=== PATIENT | female | born 1960 | race Caucasian/White ===

== ENCOUNTER → 2018-03-02 | Outpatient (CLI) | payer OTHER ==
[~2018-03-02] MED LIST: Benztropine Mesy1 MG PO; CIPR500 PO; Haldol Dec100 MG/1 M; Loperamide2 MG PO; OLANZAPINE20 MG PO; Zofran Odt4 MG SL
== END ==
LOC: LAB 11:55 → LAB SHORT 11:55
PROVIDERS: Registered Nurse Community Health
DX: Z12.4 Encounter for screening for malignant neoplasm of cervix (principal)
CPT/HCPCS: 87624; G0123

== ENCOUNTER → 2022-10-02 | Outpatient (CLI) | payer OTHER | END | disposition home or self-care (01) | LOC: LAB SHORT 16:49 | DX: R30.0 Dysuria (principal) | CPT/HCPCS: 87086 ==

== ENCOUNTER → 2023-08-17 | Outpatient (CLI) | payer OTHER ==
[2023-08-17 11:01] LABS: Calcium, Blood 10.5 mg/dL (8.5-10.1); Creatinine, Blood 0.92 mg/dL (0.40-1.00); Potassium, Blood 4.3 mmol/L (3.5-5.5)
== END | disposition home or self-care (01) ==
LOC: LAB SHORT 10:30 → LAB 10:30
PROVIDERS: Family Medicine
DX: R60.0 Localized edema (principal)
CPT/HCPCS: 80048; 83880

== ENCOUNTER → 2024-12-09 | Outpatient (CLI) | payer OTHER | END | disposition home or self-care (01) | LOC: LAB SHORT 15:21 → LAB 15:21 | DX: M54.50 Low back pain, unspecified (principal) | CPT/HCPCS: 87086 ==

== ENCOUNTER 2025-02-16 16:05 | Inpatient (IN) | payer OTHER ==
[~2025-02-16] VITALS: Ht 152.4 cm; Wt 55.6 kg
[~2025-02-16 16:05] MED LIST changes: +HALDOL DEC IM; -Haldol Dec100 MG/1 M
[2025-02-16 16:32] LABS: BASOPHILS ABSOLUTE AUTO 0.02 K/mm3 (0.00-0.23); BASOPHILS PERCENT AUTO 0 % (0-2); EOSINOPHILS ABSOLUTE AUTO 0.01 K/mm3 (0.00-0.68); EOSINOPHILS PERCENT AUTO 0 % (0-6); Hematocrit 40.1 % (33.0-51.0); Hemoglobin 13.4 g/dL (11.5-16.0); IMMATURE GRAN ABSOLUTE AUTO 0.07 K/mm3 (0.00-0.10); IMMATURE GRAN PERCENT AUTO 1 % (0-1); LYMPHOCYTES ABSOLUTE AUTO 0.69 K/mm3 (0.84-5.20); LYMPHOCYTES PERCENT AUTO 5 % (21-46); MONOCYTES ABSOLUTE AUTO 0.80 K/mm3 (0.16-1.47); MONOCYTES PERCENT AUTO 6 % (4-13); Mean Corpuscular HGB Conc 33.4 g/dL (31.5-36.5); Mean Corpuscular Volume 89 fL (80-100); NEUTROPHILS ABSOLUTE AUTO 11.43 K/mm3 (1.96-9.15); NEUTROPHILS PERCENT AUTO 88 % (41-73); NRBC ABSOLUTE 0.00 K/mm3 (0.00-0.02); NRBC Auto 0.0 /100 WBC (0.0-0.2); Platelet Count 337 K/mm3 (150-400); RDW Coefficient Variation 13.3 % (11.7-14.2); RDW Standard Deviation 44.1 fL (35.1-46.3)
[2025-02-16 16:38] LABS: pH Blood Venous 7.37 (7.34-7.37)
[2025-02-16 17:00] LABS: Alanine Aminotransfer (ALT/SGP 151.0 U/L (12-78); Albumin, Blood 2.9 g/dL (3.4-5.0); Albumin/Globulin Ratio 0.9 (0.8-1.8); Anion Gap 14.0 mmol/L (3-11); Aspartate Aminotrans (AST/SGOT 80.0 U/L (12-37); Bilirubin, Total 0.6 mg/dL (0.1-1.0); Blood Urea Nitrogen 26.0 mg/dL (8-24); CO2, Blood 23.0 mmol/L (21-32); Calcium, Blood 9.2 mg/dL (8.5-10.1); Chloride, Blood 104.0 mmol/L (98-108); Creatinine, Blood 0.91 mg/dL (0.40-1.00); Globulin, Blood 3.3 g/dL (2.2-4.0); Glucose, Blood 179.0 mg/dL (70-99); Potassium, Blood 4.6 mmol/L (3.5-5.5); Sodium, Blood 136.0 mmol/L (136-145); Total Protein, Blood 6.2 g/dL (6.4-8.2)
[2025-02-16 17:47] LABS: Influenza A, PCR NEGATIVE (NEGATIVE); Influenza B, PCR NEGATIVE (NEGATIVE); Resp Syncytial Virus, PCR NEGATIVE (NEGATIVE); SARS-Cov-2 (COVID-19) PCR, MMC NEGATIVE (NEGATIVE)
[2025-02-16] MEDS ORDERED: AMAN100 PO (18:02)
[2025-02-16] MEDS ORDERED: HALO5 PO (18:02)
[2025-02-16] MEDS ORDERED: DESV50 PO (18:02)
[2025-02-16] MEDS ORDERED: ERZOFRI156 MG/1 M IM (18:03)
[2025-02-16] MEDS ORDERED: MULTIPLE VITAM1 EACH PO (18:03)
[2025-02-16] MEDS ORDERED: Furosemide 10 MG / ML 2ML Vial IV ONE (19:30)
[2025-02-16 23:07] VITALS: BP 196/76
[2025-02-17] VITALS (7 sets, daily range): BP systolic 94–130; BP diastolic 69–85
[2025-02-17 04:38] LABS: BASOPHILS ABSOLUTE AUTO 0.02 K/mm3 (0.00-0.23); BASOPHILS PERCENT AUTO 0 % (0-2); EOSINOPHILS ABSOLUTE AUTO 0.24 K/mm3 (0.00-0.68); EOSINOPHILS PERCENT AUTO 2 % (0-6); Hematocrit 38.6 % (33.0-51.0); Hemoglobin 12.8 g/dL (11.5-16.0); IMMATURE GRAN ABSOLUTE AUTO 0.07 K/mm3 (0.00-0.10); IMMATURE GRAN PERCENT AUTO 1 % (0-1); LYMPHOCYTES ABSOLUTE AUTO 1.24 K/mm3 (0.84-5.20); LYMPHOCYTES PERCENT AUTO 9 % (21-46); MONOCYTES ABSOLUTE AUTO 0.94 K/mm3 (0.16-1.47); MONOCYTES PERCENT AUTO 7 % (4-13); Mean Corpuscular HGB Conc 33.2 g/dL (31.5-36.5); Mean Corpuscular Volume 90 fL (80-100); NEUTROPHILS ABSOLUTE AUTO 11.76 K/mm3 (1.96-9.15); NEUTROPHILS PERCENT AUTO 82 % (41-73); NRBC ABSOLUTE 0.00 K/mm3 (0.00-0.02); NRBC Auto 0.0 /100 WBC (0.0-0.2); Platelet Count 320 K/mm3 (150-400); RDW Coefficient Variation 13.5 % (11.7-14.2); RDW Standard Deviation 44.2 fL (35.1-46.3)
--- NOTE | 2025-02-17 04:41 | NUR ---
SHIFT SUMMARY - ARRIVED TO UNIT AT APPROX 2128. ABLE TO TRANSFER FROM [facility] TO HOSPITAL BED WITH SBA. DTR WITH PT, STATES SHE IS LEGAL GUARDIAN OF PT, WILL BRING IN PAPERWORK. A/OX4, SLOW TO RESPOND AT TIMES, HX OF PARANOID SCHIZOPHRENIA PER DTR. INITIALLY, REPORTED NO PAIN, BUT LATER REPORTED NEW ONSET ABDOMINAL PAIN WITH TENDERNESS ON PALPATION. NORMOACTIVE BOWEL TONES, PT STATES LAST BM WAS YESTERDAY AND NORMAL IN APPEARANCE FOR HER. TREATING PER EMAR. PT REPORTS IMPROVEMENT IN PAIN WITH TYLENOL. AMBULATING TO BATHROOM WITH SBA-1P ASSIST. PT LIVES AT [facility], A [facility]. HX OF SCHIZOPHRENIA. ON 6L NC, BIPAP AT BEDSIDE (18 35%), UPPER LOBES CLEAR, CRACKLES IN BASES. SATS ABOVE 90%. ON CONTINUOUS CARDIAC MONITORING, BP 130 S SYSTOLIC, HR IN 120 S. 2+ EDEMA IN BLE THAT HAS BEEN COMING AND GOING FOR THE LAST YEAR. SCDS IN PLACE.
[2025-02-17 05:09] LABS: Alanine Aminotransfer (ALT/SGP 156.0 U/L (12-78); Albumin, Blood 2.7 g/dL (3.4-5.0); Albumin/Globulin Ratio 0.8 (0.8-1.8); Anion Gap 12.0 mmol/L (3-11); Aspartate Aminotrans (AST/SGOT 86.0 U/L (12-37); Bilirubin, Total 0.5 mg/dL (0.1-1.0); Blood Urea Nitrogen 23.0 mg/dL (8-24); CO2, Blood 24.0 mmol/L (21-32); Calcium, Blood 8.8 mg/dL (8.5-10.1); Chloride, Blood 107.0 mmol/L (98-108); Creatinine, Blood 0.84 mg/dL (0.40-1.00); Globulin, Blood 3.3 g/dL (2.2-4.0); Glucose, Blood 125.0 mg/dL (70-99); Potassium, Blood 3.9 mmol/L (3.5-5.5); Sodium, Blood 139.0 mmol/L (136-145); Total Protein, Blood 6.0 g/dL (6.4-8.2)
[2025-02-17] MEDS ORDERED: Misc. Tablet PO SCH (09:00)
[2025-02-17] MEDS ORDERED: Enoxaparin 40 MG/0.4 ML SYR SC SCH (09:00)
[2025-02-17 17:25] LABS: Anti-Xa UFH, PHA Monitoring 0.16 IU/mL; Prothrombin Time Results 12.4 Sec (9.7-11.5)
[2025-02-17] MEDS ORDERED: Dose Adjust by Pharmacy XX STA (17:38)
[2025-02-17] MEDS ORDERED: Heparin Sodium 5000 Units/ML 1ML MDV IV ONE (17:40)
[2025-02-17] MEDS ORDERED: Heparin Sodium,Porcine/0.5 NS 500 ML IV SCH (17:40)
[2025-02-17 18:48] LABS: Source, Urine Clean Catch
[2025-02-17 19:10] LABS: Bilirubin, Urine Neg (Neg); Glucose Qualitative, Urine Neg (Neg); Ketones, Urine Neg (Neg); Leukocyte Esterase, Urine Neg (Neg); Protein, Urine Neg (Neg); Specific Gravity, Urine 1.010 (1.003-1.022); Urobilinogen, Urine NORM (Normal)
--- NOTE | 2025-02-17 19:37 | NUR ---
SHIFT SUMMARY PT A/OX4 AND COOPERATIVE OF CARE. PT MORE TIRED TODAY THAN YESTERDAY BUT STILL ABLE TO EXPRESS NEEDS. PT CONTINUES TO BE VERY SOFT SPOKEN. PT ABLE TO AMBULATE TO TOILET WITH ASSISTANCE, TOLERATED FAIR. PT HR ST THROUGHOUT SHIFT, OTHER VSS. PT REPORTED RUQ PAIN TOWARD END OF SHIFT, TREATED PER EMAR. NO REPORT OF CHEST PAIN/PRESSURE. PT TITRATED TO 2L NC THIS SHIFT, SATS IN THE 90'S. NO REPORT OF SOB. PT STARTED ON HEP GTT PER ORDER. CARDIOLOGY CONSULTED IN ORDER.
[2025-02-17 20:00] LABS: Color, Urine Pale Yellow (P-Yellow)
[2025-02-18] VITALS (31 sets, daily range): BP systolic 69–109; BP diastolic 51–80
[2025-02-18 01:52] LABS: BASOPHILS ABSOLUTE AUTO 0.02 K/mm3 (0.00-0.23); BASOPHILS PERCENT AUTO 0 % (0-2); EOSINOPHILS ABSOLUTE AUTO 0.22 K/mm3 (0.00-0.68); EOSINOPHILS PERCENT AUTO 2 % (0-6); Hematocrit 38.2 % (33.0-51.0); Hemoglobin 12.8 g/dL (11.5-16.0); IMMATURE GRAN ABSOLUTE AUTO 0.11 K/mm3 (0.00-0.10); IMMATURE GRAN PERCENT AUTO 1 % (0-1); LYMPHOCYTES ABSOLUTE AUTO 0.82 K/mm3 (0.84-5.20); LYMPHOCYTES PERCENT AUTO 7 % (21-46); MONOCYTES ABSOLUTE AUTO 0.75 K/mm3 (0.16-1.47); MONOCYTES PERCENT AUTO 6 % (4-13); Mean Corpuscular HGB Conc 33.5 g/dL (31.5-36.5); Mean Corpuscular Volume 90 fL (80-100); NEUTROPHILS ABSOLUTE AUTO 9.83 K/mm3 (1.96-9.15); NEUTROPHILS PERCENT AUTO 84 % (41-73); NRBC ABSOLUTE 0.00 K/mm3 (0.00-0.02); NRBC Auto 0.0 /100 WBC (0.0-0.2); Platelet Count 323 K/mm3 (150-400); RDW Coefficient Variation 13.4 % (11.7-14.2); RDW Standard Deviation 43.9 fL (35.1-46.3)
[2025-02-18] MEDS ORDERED: Dose Adjust by Pharmacy XX STA ×2 (02:01→09:05)
[2025-02-18 02:11] LABS: Alanine Aminotransfer (ALT/SGP 123.0 U/L (12-78); Albumin, Blood 2.4 g/dL (3.4-5.0); Albumin/Globulin Ratio 0.7 (0.8-1.8); Anion Gap 9.0 mmol/L (3-11); Aspartate Aminotrans (AST/SGOT 42.0 U/L (12-37); Bilirubin, Total 0.4 mg/dL (0.1-1.0); Blood Urea Nitrogen 21.0 mg/dL (8-24); CO2, Blood 29.0 mmol/L (21-32); Calcium, Blood 8.4 mg/dL (8.5-10.1); Chloride, Blood 104.0 mmol/L (98-108); Creatinine, Blood 0.67 mg/dL (0.40-1.00); Globulin, Blood 3.3 g/dL (2.2-4.0); Glucose, Blood 102.0 mg/dL (70-99); Magnesium, Blood 2.0 mg/dL (1.6-2.4); Phosphorus, Blood 3.9 mg/dL (2.5-4.9); Potassium, Blood 3.8 mmol/L (3.5-5.5); Sodium, Blood 138.0 mmol/L (136-145); Thyroid Stimulating Hormone 1.22 uIU/mL (0.360-4.800); Total Protein, Blood 5.7 g/dL (6.4-8.2)
--- NOTE | 2025-02-18 04:24 | NUR ---
SHIFT SUMMARY PT RESTED COMFORTABLY THROUGHOUT NIGHT WITH MINIMAL COMPLAINTS. REMAINS A&OX4. VSS ON 2L NC >92%. WITH EXERTION PT REQUIRES MORE O2. ON TELE NSR/ST 80s to LOW 100s AT REST. PT CONTINUEST TO BE SOFT SPOKEN. ABLE TO COMMUNICATE ADEQUATELY AND USES CALL LIGHT APPROPRIATELY. PT C/O 5/10 PAIN IN RLQ OF ABDOMEN. PRN TYLENOL GIVEN WITH GOOD EFFECT. HEPARIN GTT CONTINUED @ 20U/KG/HR. PT USING BATHROOM WITH SBA, URINE OUTPUT ADEQUATE. NO FURTHER QUESTIONS OR CONCERNS AT THIS TIME. WILL CONTINUE WITH PLAN OF CARE.
[2025-02-18] MEDS ORDERED: Nitroglycerin 2 MG/20 ML BTL ONE (10:58)
[2025-02-18] MEDS ORDERED: NS 250 ML IV ONE (10:58)
[2025-02-18] MEDS ORDERED: NiCARdipine HCL 1,000 MCG/5 ML SYR ONE (10:58)
[2025-02-18] MEDS ORDERED: NS 1,000 ML IV ONE ×2 (10:58→11:29)
--- NOTE | 2025-02-18 11:15 | NUR ---
PT LEFT PCU FOR PROCEDURE. DAUGHTER ISRRAEL PRESENT AT THIS TIME AND PLANNING TO WAIT IN HC WAITING ROOM.
[2025-02-18] MEDS ORDERED: FentaNYL Citrate 50 MCG/ML 2 ML Injection ONE (11:28)
[2025-02-18] MEDS ORDERED: Midazolam HCl 1MG / ML 2ML Vial ONE (11:29)
[2025-02-18] MEDS ORDERED: Phenylephrine HCl 100 MCG/ML-NS 10MLSYR (1MG/10ML) ONE (11:50)
--- NOTE | 2025-02-18 13:00 | NUR ---
PT BACK FROM PROCEDURE AT 1455. BEDSIDE REPORT RECIEVED FROM HC NURSE. FAMILY PRESENT . TR BAND C/D/I WITH NO HEMATOMA. PT REPORTED SLIGHT PAIN TO RIGHT ARM, DID NOT GIVE NUMERICAL LEVEL.
--- NOTE | 2025-02-18 18:15 | NUR ---
SHIFT SUMMARY PT A/OX4 AND COOPERATIVE OF CARE. PT CONTINUES TO BE SOFT SPOKEN BUT ABLE TO EXPRESS NEEDS AND USE CALL LIGHT. PT BP STABLE THIS MORNING BUT HAS BEEN SOFT SICE ARRIVING BACK [employer] SALES REPRESENTATIVE, NOTIFIED AND MIDODRINE ORDERED. OTHER VSS THROUGHOUT SHIFT WITH O2 SATS IN THE 90'S ON 2L NC. PT HAD ONE STENT PLACED, SEE PROCEDURAL NOTES. PT FAMILY PRESENT FOR ABOUT HALF OF SHIFT AND UPDATED. FAMILY WANTING TO HAVE A MEETING WITH HOSPITALIST HOPEF[facility]Y TOMORROW. TR BAND RECOVERD OF 4 HOURS DUE TO HEP GTT BEING RESTARTED AFTER ANGIO, SEE EMAR. PT MORE ALERT TODAY WITH STAFF AND FAMILY.
[2025-02-19] VITALS (9 sets, daily range): BP systolic 73–104; BP diastolic 58–67
[2025-02-19 03:11] LABS: BASOPHILS ABSOLUTE AUTO 0.06 K/mm3 (0.00-0.23); BASOPHILS PERCENT AUTO 1 % (0-2); EOSINOPHILS ABSOLUTE AUTO 0.60 K/mm3 (0.00-0.68); EOSINOPHILS PERCENT AUTO 5 % (0-6); Hematocrit 37.4 % (33.0-51.0); Hemoglobin 12.2 g/dL (11.5-16.0); IMMATURE GRAN ABSOLUTE AUTO 0.09 K/mm3 (0.00-0.10); IMMATURE GRAN PERCENT AUTO 1 % (0-1); LYMPHOCYTES ABSOLUTE AUTO 1.10 K/mm3 (0.84-5.20); LYMPHOCYTES PERCENT AUTO 10 % (21-46); MONOCYTES ABSOLUTE AUTO 0.57 K/mm3 (0.16-1.47); MONOCYTES PERCENT AUTO 5 % (4-13); Mean Corpuscular HGB Conc 32.6 g/dL (31.5-36.5); Mean Corpuscular Volume 89 fL (80-100); NEUTROPHILS ABSOLUTE AUTO 8.93 K/mm3 (1.96-9.15); NEUTROPHILS PERCENT AUTO 79 % (41-73); NRBC ABSOLUTE 0.00 K/mm3 (0.00-0.02); NRBC Auto 0.0 /100 WBC (0.0-0.2); Platelet Count 316 K/mm3 (150-400); RDW Coefficient Variation 13.4 % (11.7-14.2); RDW Standard Deviation 44.0 fL (35.1-46.3)
[2025-02-19] MEDS ORDERED: Dose Adjust by Pharmacy XX STA (03:51)
[2025-02-19 03:54] LABS: Very Low Density Lipoprot Chol 22 mg/dL (6-32)
[2025-02-19 04:01] LABS: Alanine Aminotransfer (ALT/SGP 90 U/L (12-78); Albumin, Blood 2.2 g/dL (3.4-5.0); Albumin/Globulin Ratio 0.8 (0.8-1.8); Anion Gap 6 mmol/L (3-11); Aspartate Aminotrans (AST/SGOT 41 U/L (12-37); Bilirubin, Total 0.3 mg/dL (0.1-1.0); Blood Urea Nitrogen 17 mg/dL (8-24); CHOL/HDL RATIO 3.8; CO2, Blood 33 mmol/L (21-32); Calcium, Blood 9.0 mg/dL (8.5-10.1); Chloride, Blood 104 mmol/L (98-108); Cholesterol 98 mg/dL (50-200); Creatinine, Blood 0.78 mg/dL (0.40-1.00); Globulin, Blood 2.9 g/dL (2.2-4.0); Glucose, Blood 104 mg/dL (70-99); HDL Cholesterol 26 mg/dL (>39); LDL/HDL RATIO 1.9; Low Density Lipoprotein Chol 50 mg/dL (0-110); Magnesium, Blood 2.0 mg/dL (1.6-2.4); Potassium, Blood 3.5 mmol/L (3.5-5.5); Sodium, Blood 139 mmol/L (136-145); Total Protein, Blood 5.1 g/dL (6.4-8.2); Triglycerides 112 mg/dL (30-160)
--- NOTE | 2025-02-19 05:16 | NUR ---
SHIFT SUMMARY VSS AT THIS TIME. BPs CONTINUE TO BE LOW HOWEVER MAP REMAINS >65. PT ON 2L NC TO MAINTAIN >92%. WITH EXERTION PT REQUIRES MORE. ON TELE PT REMAINS IN NSR 90s-100s. PT RESTING COMFORTABLY THROUGHOUT NIGHT. ISRRAEL (LEGAL GUARDIAN) AND OTHER DAUGHTER, NEETU, AT BEDSIDE AT START OF SHIFT. DISCUSSED CODE STATUS. ULTIMATELY THEY DECIDED TO SWITCH HER TO DNR. THIS NURSE AND CHARGE NURSE, JOSE, DISCUSSED WITH MD SIMEON AND MADE THE SWITCH. PT HAD NO C/O PAIN THROUGHOUT NIGHT. PT STATES SHE FEELS BETTER AND FROM OBSERVATION PT DOES NOT SEEM TO BE IN MUCH RESP DISTRESS PREVIOUS NIGHT. MINIMAL OUTPUT THROUGH NIGHT, CONTINUING 1500 FR. HEPARIN GTT CONTINUED. NEREIDA PG PLACED. NO FURTHER QUESTIONS OR CONCERNS AT THIS TIME. WILL CONTINUE WITH PLAN OF CARE.
[2025-02-19] MEDS ORDERED: HYDROcodone 5-APAP 325 TAB PO PRN (14:00)
--- NOTE | 2025-02-19 15:28 | NUR ---
SUPPORTIVE VISIT WITH PT'S DTR'S HITESH. DTR CONNIE REPORTS BEING PT'S GUARDIAN. PT RESIDES AT THE [facility] ([facility]). CONNIE REPORTS PT CAN ONLY RETURN TO THE [facility] IF SHE IS INDEPENDENT (NO OXYGEN, WALKER OR BAITHING. PT CONTINUES TO BE HYPOTENSIVE AND USING MIDODRINE. PT C/O RIGHT UPPER QUAD PAIN. REPORT OF ABD PAIN RELAYED TO BREAK NURSE. PLAN: GOALS OF CARE CONVERSATION TOMORROW 02/20/25 AFTER DTNeha ROSALES MEETS WITH DR. BISWAS.
--- NOTE | 2025-02-19 17:50 | NUR ---
SHIFT SUMMARY PATIENT ALERT, ORIENTED x4, ANSWERING QUESTIONS APPROPRIATELY WHEN ASKED BUT PATIENT HAS A Hx OF SCHIZOPHRENIA. BP SOFT THROUGHOUT THE SHIFT, SCHEDULED MIDODRINE TID. TELE READING SR. ON 1L NC DURING THE DAY WITH SPO2 LOW TO MID 90s. PATIENT REPORTING MILD SOB WITH ACTIVITY, ATTEMPTS MADE TO TITRATE O2 OFF BUT PATIENT WOULD DESAT TO THE 80s. PATIENT STANDBY ASSIST TO BATHROOM, ADEQUATE OUTPUT DURING THE DAY. PATIENT REPORTING RUQ PAIN, MEDICATED PER EMAR. FAMILY AT THE BEDSIDE DURING THE DAY. PALLIATIVE CARE HAD SIGNIFICANT CONVERSATIONS WITH DAUGHTERS AT BEDSIDE DURING THE DAY. THIS RN CALLED DR. WALKER AFTER HAVING CONVERSATION WITH DAUGHTERS REGARDING PLAN OF CARE. DAUGHTERS REQUESTING REPEAT TESTING SUCH CHEST XRAY, REPEAT ECHO AND TAKING AWAY FLUID RESTRICTION. DAUGHTERS HAVE AGREED THAT THEY DO NOT WANT THEIR MOTHER "SUFFERING". DR. WALKER OK WITH TAKING AWAY FLUID RESTRICTION AND XRAY IN THE MORNING. DAUGHTERS AGREEABLE. ORDERS UPDATED.
[2025-02-20] VITALS (10 sets, daily range): BP systolic 83–99; BP diastolic 52–68
[2025-02-20 04:23] LABS: Anion Gap 3.0 mmol/L (3-11); Blood Urea Nitrogen 15.0 mg/dL (8-24); CO2, Blood 35.0 mmol/L (21-32); Calcium, Blood 9.4 mg/dL (8.5-10.1); Chloride, Blood 104.0 mmol/L (98-108); Creatinine, Blood 0.85 mg/dL (0.40-1.00); Glucose, Blood 118.0 mg/dL (70-99); Magnesium, Blood 2.2 mg/dL (1.6-2.4); Potassium, Blood 3.7 mmol/L (3.5-5.5); Sodium, Blood 138.0 mmol/L (136-145)
--- NOTE | 2025-02-20 05:14 | NUR ---
SHIFT SUMMARY PT HAS TOLERATED SHIFT WELL WITH NO SIGNIFICANT CHANGES OVERNIGHT. PT CONTINUES TO HAVE LOW BLOOD PRESSURES THROUGHOUT SHIFT WITHOUT COMPLAINT OF LIGHTHEADEDNESS. PT HAS BEEN ON 2L NC OVERNIGHT AND SATS > 95%. PT HAS NO COMPLAINTS OF PAIN AT THIS TIME. WILL CONTINUE TO MONITOR UNTIL REPORT PASSED TO DAY SHIFT TEAM.
--- NOTE | 2025-02-20 09:56 | NUR ---
AM NOTE: PATIENT ALERT AND ORIENTED X3. ABLE TO TELL ME WHO SHE IS, WHERE SHE IS, AND SOME DETAILS ABOUT CURRENT SITUATION. UP WITH SBA FOR SAFETY. MOVING ALL EXTREMITIES. OVERALL WEAK. SOFT SPOKEN. TELE SHOWING SR/ST WITH HR 90-100'S. SBP 80-90'S. TRACE EDEMA TO BLE. PPP. DENIES CHEST PAIN/PRESSURE/PALPITATIONS. DR. ZAMORANO TO BEDSIDE THIS MORNING AND RN PRESENT. MEDICAL STATUS WITH TELE. ORDERS IN PLACE. WEARING 2L NASAL CANNULA THIS AM, TITRATED TO ROOM AIR AND SATING ABOVE 95%. SHALLOW BREATHING. LUNG SOUNDS CLEAR AND DIM IN BASES. DENIES COUGH. INTERMIT MILD NOSE BLEEDS. COMPLAINS OF MILD RUQ PAIN THAT IS PINPOINT AND ACHEY. CHEST XRAY COMPLETED THIS AM AND PENDING. TOLERATING PO DIET. DENIES NAUSEA. UP TO BATHROOM TO VOID. PLAN FOR SHOWER TODAY WHEN DAUGHTER ARRIVES. UP TO RECLINER THIS AM. CALL LIGHT IN REACH. DENIES NEEDS AT THIS TIME.
--- NOTE | 2025-02-20 12:09 | NUR ---
DAUGHTER CONNIE AT BEDSIDE AND UPDATED BY THIS RN. DR. BISWAS AND PALLIATIVE RN NOTIFIED OF FAMILY PRESENCE AND PLAN FOR FAMILY MEETING. PATIENT EATING LUNCH AT THIS TIME. AFTERNOON VITALS STABLE. REMAINS ON ROOM AIR.
[2025-02-20 14:14] LABS: Ferritin, Serum 209.0 ng/mL (8-252); Total Iron Binding Capacity 194.0 ug/dL (250-450)
--- NOTE | 2025-02-20 14:55 | NUR ---
GOALS OF CARE VISIT WITH PROVIDER, PT'S DTR CONNIE, CARE MANAGEMENT AND THIS PC RN. CONNIE IS PT'S DTR AND GUARDIAN. CONNIE ASKED FOR GOALS OF CARE CONVERSATION TO TAKE PLACE OUTSIDE OF PT'S ROOM. REVIEWED PT'S CURRENT CARDIAC STATUS, EF OF 10-15% AND APICAL MURAL THROMBUS. PT REMAINS HYPOTENSIVE. PROVIDER TO REVIEW AND ADJUST MEDICATIONS APPROPRIATE. PT IS NOT ABLE TO RETURN TO CURRENT LIVING LOCATION, [facility] D/T PT'S INCREASE IN MEDICAL NEEDS. CONNIE PLANS TO CHECK OUT [facility] FOR POSSIBLE PLACEMENT. GOAL: MANAGE BLOOD PRESSURES TO IMPROVE HYPOTENSION SYMPTOMS. ESTABLISH LEVEL OF CARE WANTS UPON DISCHARGE. POSSIBLE PLAN OF HOSPICE ON DISCHARGE.
--- NOTE | 2025-02-20 18:31 | NUR ---
CHARISMAER TO 328: NO ACUTE CHANGES. PATIENT IN GOOD SPIRITS WITH FAMILY AROUND. REMAINS ALERT AND ORIENTED X3. SOFT SPOKEN. ON ROOM AIR. TELE SHOWING SR/ST. SBP 80-90'S. MEDICATED FOR PAIN X1. TOLERATING PO DIET. UP TO BATHROOM TO VOID. FAMILY MEETING WITH DR. CARDENAS AND PALLIATIVE CARE THIS AFTERNOON. PATIENT TRANSFERRED WITH ALL PERSONAL BELONGINGS, MEDICATIONS AND CHART. REPORT GIVEN TO HALLIE VELIZ.
[2025-02-21] VITALS (9 sets, daily range): BP systolic 85–118; BP diastolic 60–77
--- NOTE | 2025-02-21 05:29 | NUR ---
A&O X4, VSS, ON SBA. WITH PAIN ON RUQ ABDOMEN BELOW CHEST. RELATIVE SEEMS UNHAPPY & WORRY ON IRON TEST BCS ITS LOW AND COMPLAINT OF MED DELAY. SBP <90 BUT ASYMPTOMATIC & DENY DIZINESS / ANY CHEST DISCOMFORT. MIDODRINE GIVEN, ENTRESTO HELD THEN EDUCATED ON MED INTERVALS/TIME. VSS THEREAFTER AND PULSE OXI MON CONTINUED. ABLE TO TOLERATE AMBULATION. REQUESTED FOR ANTI GAS PILL BUT FELL ASLEEP THEREAFTER.
[2025-02-21 05:55] LABS: Anion Gap 5.0 mmol/L (3-11); Blood Urea Nitrogen 15.0 mg/dL (8-24); CO2, Blood 32.0 mmol/L (21-32); Calcium, Blood 9.1 mg/dL (8.5-10.1); Chloride, Blood 106.0 mmol/L (98-108); Creatinine, Blood 0.89 mg/dL (0.40-1.00); Glucose, Blood 122.0 mg/dL (70-99); Magnesium, Blood 2.0 mg/dL (1.6-2.4); Potassium, Blood 4.0 mmol/L (3.5-5.5); Sodium, Blood 139.0 mmol/L (136-145)
[2025-02-21 07:55] LABS: BASOPHILS ABSOLUTE AUTO 0.05 K/mm3 (0.00-0.23); BASOPHILS PERCENT AUTO 1 % (0-2); EOSINOPHILS ABSOLUTE AUTO 0.41 K/mm3 (0.00-0.68); EOSINOPHILS PERCENT AUTO 4 % (0-6); Hematocrit 35.9 % (33.0-51.0); Hemoglobin 12.0 g/dL (11.5-16.0); IMMATURE GRAN ABSOLUTE AUTO 0.17 K/mm3 (0.00-0.10); IMMATURE GRAN PERCENT AUTO 2 % (0-1); LYMPHOCYTES ABSOLUTE AUTO 1.39 K/mm3 (0.84-5.20); LYMPHOCYTES PERCENT AUTO 15 % (21-46); MONOCYTES ABSOLUTE AUTO 0.64 K/mm3 (0.16-1.47); MONOCYTES PERCENT AUTO 7 % (4-13); Mean Corpuscular HGB Conc 33.4 g/dL (31.5-36.5); Mean Corpuscular Volume 90 fL (80-100); NEUTROPHILS ABSOLUTE AUTO 6.80 K/mm3 (1.96-9.15); NEUTROPHILS PERCENT AUTO 72 % (41-73); NRBC ABSOLUTE 0.00 K/mm3 (0.00-0.02); NRBC Auto 0.0 /100 WBC (0.0-0.2); Platelet Count 330 K/mm3 (150-400); RDW Coefficient Variation 13.6 % (11.7-14.2); RDW Standard Deviation 45.0 fL (35.1-46.3)
--- NOTE | 2025-02-21 07:59 | NUR ---
NOTIFIED DR. BISWAS OF PATIENTS BLOOD PRESSURE OF 89/64 THIS AM. NO PARAMETERS FOR CARVEDILOL AND HE OK'D TO GIVE THIS AM BUT HOLD ENTRESTO PER PARAMETERS. CARDIOLOGY TO ROUND TODAY AND WILL REVIEW WITH DR. BISWAS.
--- NOTE | 2025-02-21 11:22 | NUR ---
PT GOT UP TO GO TO BATHROOM, BECAME INCREASINGLY SOB ON HER WAY BACK, FEELING WEAK AND LIGHTHEADED. BLOOD PRESSURE TAKEN AND WNL FOR HER. PT HAD REPORTED ONGOING RIGHT SIDED FLANK/LOWER QUADRANT PAIN AND WAS GIVEN PAIN PILL BY BREAK SHIFT NURSE. NOTIFIED DR. BISWAS OF THIS EPISODE. PT BACK IN BED SATS WNL ON ROOM AIR. SHALLOW/TACHYPNIC/SPLINTING BREATHING. EDUCATED TO TAKE DEEP BREATHS AND THIS SEEMS TO HELP. FAMILY AT BEDSIDE AND WAITING ON DR. BISWAS TO ROUND THIS AM.
--- NOTE | 2025-02-21 18:47 | NUR ---
SUMMARY PT BLOOD PRESSURE SOFT, DR. BISWAS TO CHANGE HER CARVEDILOL AND TRIAL METOPROLOL TO SEE IF THIS DOES NOT AFFECT HER B/P MUCH. SCHEDULED MIDODRINE TID. PT UP TO BSC 1 ASSIST DUE TO INCREASED SOB AND TACHYPNEA/TACHYCARDIA IWTH EXERTION. PT HAVING ONGIONG RIGHT ABD PAIN, DR. BISWAS AWARE AND PRN NORCO GIVEN X2 THIS SHIFT AND TYLENOL X1 TO HELP MANAGE PAIN. PLAN IF LTC, POTENTIALLY [place] ONCE STABLE. DR. BISWAS VERBALLY ORDERED TO CALL HIS CELL DIRECTLY IF PT HAS DROP IN HER BLOOD PRESSURES BELOW HER SOFT BASELINE OVERNIGHT. HE WILL BE DECK WORKER ALREADY.
[2025-02-22] VITALS (8 sets, daily range): BP systolic 81–115; BP diastolic 54–78
--- NOTE | 2025-02-22 05:03 | NUR ---
SHIFT SUMMARY: AOX4. LUNG SOUNDS CLEAR TO DIMINISHED IN THE BASES. BP SOFT THROUGHOUT THE NIGHT. MIDODRINE GIVEN PER eMAR. TELE NSR 90s. NO COMPLAINTS OF INCREASED SOB OR RESPIRATORY DISTRESS. NO COMPLAINTS OF PAIN. CALL LIGHT IS WITHIN REACH. BED IS LOW AND LOCKED.
[2025-02-22 05:36] LABS: BASOPHILS ABSOLUTE AUTO 0.06 K/mm3 (0.00-0.23); BASOPHILS PERCENT AUTO 1 % (0-2); EOSINOPHILS ABSOLUTE AUTO 0.35 K/mm3 (0.00-0.68); EOSINOPHILS PERCENT AUTO 3 % (0-6); Hematocrit 33.4 % (33.0-51.0); Hemoglobin 10.8 g/dL (11.5-16.0); IMMATURE GRAN ABSOLUTE AUTO 0.25 K/mm3 (0.00-0.10); IMMATURE GRAN PERCENT AUTO 3 % (0-1); LYMPHOCYTES ABSOLUTE AUTO 1.49 K/mm3 (0.84-5.20); LYMPHOCYTES PERCENT AUTO 15 % (21-46); MONOCYTES ABSOLUTE AUTO 0.64 K/mm3 (0.16-1.47); MONOCYTES PERCENT AUTO 6 % (4-13); Mean Corpuscular HGB Conc 32.3 g/dL (31.5-36.5); Mean Corpuscular Volume 90 fL (80-100); NEUTROPHILS ABSOLUTE AUTO 7.41 K/mm3 (1.96-9.15); NEUTROPHILS PERCENT AUTO 73 % (41-73); NRBC ABSOLUTE 0.00 K/mm3 (0.00-0.02); NRBC Auto 0.0 /100 WBC (0.0-0.2); Platelet Count 288 K/mm3 (150-400); RDW Coefficient Variation 13.7 % (11.7-14.2); RDW Standard Deviation 45.0 fL (35.1-46.3)
[2025-02-22 05:57] LABS: Alanine Aminotransfer (ALT/SGP 40.0 U/L (12-78); Albumin, Blood 2.0 g/dL (3.4-5.0); Albumin/Globulin Ratio 0.8 (0.8-1.8); Anion Gap 6.0 mmol/L (3-11); Aspartate Aminotrans (AST/SGOT 18.0 U/L (12-37); Bilirubin, Total 0.4 mg/dL (0.1-1.0); Blood Urea Nitrogen 12.0 mg/dL (8-24); CO2, Blood 27.0 mmol/L (21-32); Calcium, Blood 7.5 mg/dL (8.5-10.1); Chloride, Blood 114.0 mmol/L (98-108); Creatinine, Blood 0.79 mg/dL (0.40-1.00); Globulin, Blood 2.4 g/dL (2.2-4.0); Glucose, Blood 88.0 mg/dL (70-99); Magnesium, Blood 1.8 mg/dL (1.6-2.4); Potassium, Blood 3.6 mmol/L (3.5-5.5); Sodium, Blood 143.0 mmol/L (136-145); Total Protein, Blood 4.4 g/dL (6.4-8.2)
[2025-02-22 12:02] LABS: HEPATITIS A ANTIBODY, IGM Negative (Negative); HEPATITIS C AB CIA INTERP Low Pos (Negative); HEPATITIS C ANTIBODY CIA INDEX 1.80 IV
--- NOTE | 2025-02-22 17:57 | NUR ---
DAUGHTER HELPFUL AT BEDSIDE, POSSIBLE DSICHARGE TO FACILITY TOMORROW, HIGH PROBABILTY OF BEING HOSPICE, HYPOTENSIVE MAP ALWAYS GREATERS THAN 65, AWARE, SOB EASILY EVEN JUT FROM SMALL DRINKS OF WATER, CALL LIGHT WITH IN REACH, WILL RELAY TO PM RN
[2025-02-23 03:12] VITALS: BP 93/65
--- NOTE | 2025-02-23 03:34 | NUR ---
SHIFT SUMMARY: AOX4. AMBULATES SBA TO BSC. TELE NSR 70s. BP HAS BEEN LOW THIS SHIFT, 81/54 MAP 64, ASSYMPTOMATIC. MD NOTIFIED. STATED THAT GOAL IS MAP >60 LONG PT IS ASSYMPTOMATIC. PT DOES GET SOB WITH EXERTION, SpO2 >92% THROUGHOUT THE SHIFT. CALL LIGHT IS WITHIN REACH. BED IS LOW AND LOCKED.
[2025-02-23 06:23] LABS: BASOPHILS ABSOLUTE AUTO 0.07 K/mm3 (0.00-0.23); BASOPHILS PERCENT AUTO 1 % (0-2); EOSINOPHILS ABSOLUTE AUTO 0.31 K/mm3 (0.00-0.68); EOSINOPHILS PERCENT AUTO 3 % (0-6); Hematocrit 36.1 % (33.0-51.0); Hemoglobin 11.6 g/dL (11.5-16.0); IMMATURE GRAN ABSOLUTE AUTO 0.31 K/mm3 (0.00-0.10); IMMATURE GRAN PERCENT AUTO 3 % (0-1); LYMPHOCYTES ABSOLUTE AUTO 1.70 K/mm3 (0.84-5.20); LYMPHOCYTES PERCENT AUTO 15 % (21-46); MONOCYTES ABSOLUTE AUTO 0.70 K/mm3 (0.16-1.47); MONOCYTES PERCENT AUTO 6 % (4-13); Mean Corpuscular HGB Conc 32.1 g/dL (31.5-36.5); Mean Corpuscular Volume 90 fL (80-100); NEUTROPHILS ABSOLUTE AUTO 8.58 K/mm3 (1.96-9.15); NEUTROPHILS PERCENT AUTO 73 % (41-73); NRBC ABSOLUTE 0.00 K/mm3 (0.00-0.02); NRBC Auto 0.0 /100 WBC (0.0-0.2); Platelet Count 318 K/mm3 (150-400); RDW Coefficient Variation 13.7 % (11.7-14.2); RDW Standard Deviation 45.0 fL (35.1-46.3)
[2025-02-23 06:50] LABS: Alanine Aminotransfer (ALT/SGP 41.0 U/L (12-78); Albumin, Blood 2.4 g/dL (3.4-5.0); Albumin/Globulin Ratio 0.8 (0.8-1.8); Anion Gap 8.0 mmol/L (3-11); Aspartate Aminotrans (AST/SGOT 25.0 U/L (12-37); Bilirubin, Total 0.3 mg/dL (0.1-1.0); Blood Urea Nitrogen 14.0 mg/dL (8-24); CO2, Blood 30.0 mmol/L (21-32); Calcium, Blood 8.4 mg/dL (8.5-10.1); Chloride, Blood 105.0 mmol/L (98-108); Creatinine, Blood 0.98 mg/dL (0.40-1.00); Globulin, Blood 2.9 g/dL (2.2-4.0); Glucose, Blood 94.0 mg/dL (70-99); Potassium, Blood 4.0 mmol/L (3.5-5.5); Sodium, Blood 139.0 mmol/L (136-145); Total Protein, Blood 5.3 g/dL (6.4-8.2)
[2025-02-23 07:12] VITALS: BP 89/64
[2025-02-23 12:18] VITALS: BP 82/63
[2025-02-23 15:28] VITALS: BP 84/60
--- NOTE | 2025-02-23 17:31 | NUR ---
SHIFT NOTE: BP REMAINS SOFT, MAPS REMAIN >60. METOPROLOL HELD THIS AM, MIDODRINE GIVEN ORDERED TO MAINTAIN MAPS >60. PT REMAINS ON RA DENYING SOB. SHE CONTINUES TO ENDORSE RIGHT SIDED ABD PAIN, BUT DENIES THE NEED OR DESIRE FOR PAIN MEDICATIONS. DAUGHTER IS AT BEDSIDE AND UP TO DATE ON THE PLAN OF CARE. DAUGHTER REPORTS SHE IS ATTEMPTING TO GET PT PLACEMENT AT [facility]. CARE CONTINUES
[2025-02-23 17:35] LABS: HCV QNT BY NAAT (IU/ML) Not Detected; HCV QNT BY NAAT (LOG IU/ML) Not Detected; HCV QNT BY NAAT INTERP Not Detected (Not Detected)
[2025-02-23 19:42] VITALS: BP 74/52
[2025-02-23 23:04] VITALS: BP 82/54
[2025-02-24 04:27] VITALS: BP 92/61
[2025-02-24 06:11] LABS: BASOPHILS ABSOLUTE AUTO 0.10 K/mm3 (0.00-0.23); BASOPHILS PERCENT AUTO 1 % (0-2); EOSINOPHILS ABSOLUTE AUTO 0.29 K/mm3 (0.00-0.68); EOSINOPHILS PERCENT AUTO 2 % (0-6); Hematocrit 35.2 % (33.0-51.0); Hemoglobin 11.5 g/dL (11.5-16.0); IMMATURE GRAN ABSOLUTE AUTO 0.28 K/mm3 (0.00-0.10); IMMATURE GRAN PERCENT AUTO 2 % (0-1); LYMPHOCYTES ABSOLUTE AUTO 1.70 K/mm3 (0.84-5.20); LYMPHOCYTES PERCENT AUTO 13 % (21-46); MONOCYTES ABSOLUTE AUTO 0.78 K/mm3 (0.16-1.47); MONOCYTES PERCENT AUTO 6 % (4-13); Mean Corpuscular HGB Conc 32.7 g/dL (31.5-36.5); Mean Corpuscular Volume 90 fL (80-100); NEUTROPHILS ABSOLUTE AUTO 9.57 K/mm3 (1.96-9.15); NEUTROPHILS PERCENT AUTO 75 % (41-73); NRBC ABSOLUTE 0.00 K/mm3 (0.00-0.02); NRBC Auto 0.0 /100 WBC (0.0-0.2); Platelet Count 305 K/mm3 (150-400); RDW Coefficient Variation 13.8 % (11.7-14.2); RDW Standard Deviation 45.1 fL (35.1-46.3)
--- NOTE | 2025-02-24 06:15 | NUR ---
SHIFT SUMMARY PT SLEPT INTERMITTENTLY DURING THE NIGHT. DAUGHTERS AT BEDSIDE LAST EVENING UNTIL PT WENT TO SLEEP. BLOOD PRESSURE CONTNUES TO BE SOFT, BUT MAP> 60. PT STATES SOME OCCASIONAL DIZZINESS WHEN UP. PT WITH CONTINUOUS PULSE OX AND O2 SATS WNL ON ROOM AIR. PT DENIES FEELING SOB WHEN UP. BED IN LOWEST POSITION, CALL LIGHT WITHIN REACH, SIDERAILS UP X2.
[2025-02-24 06:36] LABS: Alanine Aminotransfer (ALT/SGP 36.0 U/L (12-78); Albumin, Blood 2.4 g/dL (3.4-5.0); Albumin/Globulin Ratio 0.8 (0.8-1.8); Anion Gap 8.0 mmol/L (3-11); Aspartate Aminotrans (AST/SGOT 22.0 U/L (12-37); Bilirubin, Total 0.3 mg/dL (0.1-1.0); Blood Urea Nitrogen 17.0 mg/dL (8-24); CO2, Blood 29.0 mmol/L (21-32); Calcium, Blood 8.6 mg/dL (8.5-10.1); Chloride, Blood 106.0 mmol/L (98-108); Creatinine, Blood 1.0 mg/dL (0.40-1.00); Globulin, Blood 2.9 g/dL (2.2-4.0); Glucose, Blood 103.0 mg/dL (70-99); Potassium, Blood 4.0 mmol/L (3.5-5.5); Sodium, Blood 139.0 mmol/L (136-145); Total Protein, Blood 5.3 g/dL (6.4-8.2)
[2025-02-24 07:21] VITALS: BP 91/62
--- NOTE | 2025-02-24 17:13 | NUR ---
SHIFT SUMMARY PT AOX4, COOPERATIVE, ABLE TO MAKE NEEDS KNOWN. PT HAS BEEN IN BED MOST OF DAY, ONLY OOB TO VOID IN COMMODE. CHATTED WITH DAUGHTER TODAY ABOUT ACTIVITY LEVEL; PT IS WANTING TO USE COMMODE INSTEAD OF BATHROOM. PT HAS HARD TIME CATCHING BREATH AFTER TAKING PO MEDICATION, THIS SEEMS TO BE BASELINE. AWAITING PLACEMENT. BED IN LOWEST POSITION, CALL LIGHT WITHIN REAH.
[2025-02-24 19:39] VITALS: BP 82/53
[2025-02-25] VITALS (8 sets, daily range): BP systolic 66–99; BP diastolic 54–67
--- NOTE | 2025-02-25 05:27 | NUR ---
SHIFT SUMMARY PT SLEPT INTERMITTENTLY DURING THE NIGHT. FAMILY VISITING MOST OF THE EVENING. PT STATES SOME SOB AND DIZZINESS INTERMITTENTLY, BUT NOT SUSTAINED. BLOOD PRESSURE REMAINS SOFT, BUT MAP >60. CONTINUOUS PULSE OX WITH ROOM AIR SATS WNL. PT OOB TO BSC WITH 1 ASSIST. BED IN LOWEST POSITION, CALL LIGHT WITHIN REACH, SIDERAILS UP X2.
--- NOTE | 2025-02-25 18:34 | NUR ---
ASSUMED CARE OF PT UNEVENTFUL DAY FOR PT A/O X3 SOFT SPOKEN BUT MAKES NEEDS KNOWN AND CALL LIGHT REMAINS AT BEDSIDE. PLAN TO GET PT UP FOR ALL MEALS SOFT BP NOTED WITH A MAP AT HIGH 60S NO C/O PAIN NO DISTRESS, PT TREATED WITH MIDODRINE, PT NOTED TO HAVE ABD PAIN AND WAS TREATED WITH PAIN MEDICATION. PT AWAITING CARE FACILITY IN ORDER TO DISCHARGE, DAUGHTERS AT BEDSIDE PT CURRENTLY PAIN FREE, NO DISTRESS FAMILY AT BEDSIDE.
[2025-02-26] MEDS ORDERED: Artificial Tear Opth Oint 3.5 GM BOTHEYES PRN (01:45)
[2025-02-26 04:14] VITALS: BP 77/54
--- NOTE | 2025-02-26 06:18 | NUR ---
SHIFT SUMMARY PT SLEPT INTERMITTENLTY DURING THE NIGHT. PT DESATTED WHILE SLEEPING, 2L NC PLACED WITH SATS> 92%. MEDICATED WITH NORCO X1 FOR C/O R SIDED ABD PAIN PER EMAR. PT C/O DRY LEFT EYE, LACRILUBE ORDERED, AND GIVEN PER EMAR. PT UP TO BATHROOM WITH FWW AND 1 ASSIST WITH STEADY GAIT. BED IN LOWEST POSITION, CALL LIGHT WITHIN REACH, SIDERAILS UP X2.
[2025-02-26 07:14] VITALS: BP 81/59
[2025-02-26 11:30] VITALS: BP 84/60
[2025-02-26 11:50] LABS: BASOPHILS ABSOLUTE AUTO 0.06 K/mm3 (0.00-0.23); BASOPHILS PERCENT AUTO 1 % (0-2); EOSINOPHILS ABSOLUTE AUTO 0.24 K/mm3 (0.00-0.68); EOSINOPHILS PERCENT AUTO 2 % (0-6); Hematocrit 36.3 % (33.0-51.0); Hemoglobin 11.6 g/dL (11.5-16.0); IMMATURE GRAN ABSOLUTE AUTO 0.15 K/mm3 (0.00-0.10); IMMATURE GRAN PERCENT AUTO 2 % (0-1); LYMPHOCYTES ABSOLUTE AUTO 1.59 K/mm3 (0.84-5.20); LYMPHOCYTES PERCENT AUTO 16 % (21-46); MONOCYTES ABSOLUTE AUTO 0.89 K/mm3 (0.16-1.47); MONOCYTES PERCENT AUTO 9 % (4-13); Mean Corpuscular HGB Conc 32.0 g/dL (31.5-36.5); Mean Corpuscular Volume 92 fL (80-100); NEUTROPHILS ABSOLUTE AUTO 7.15 K/mm3 (1.96-9.15); NEUTROPHILS PERCENT AUTO 71 % (41-73); NRBC ABSOLUTE 0.00 K/mm3 (0.00-0.02); NRBC Auto 0.0 /100 WBC (0.0-0.2); Platelet Count 329 K/mm3 (150-400); RDW Coefficient Variation 14.1 % (11.7-14.2); RDW Standard Deviation 47.9 fL (35.1-46.3)
[2025-02-26 16:00] VITALS: BP 80/59
--- NOTE | 2025-02-26 17:45 | NUR ---
PT ISCONFUSED AT TIMES. PT HAS C/O ABD PAIN, SEE EMAR FOR TIMES AND WHAT GIVEN. THIS PT NEEDS CASE MANAGEMENT TO HELP POA (DAUGHTER) WITH FUTURE D/C PLANNING
[2025-02-26 19:44] VITALS: BP 80/62
[2025-02-26 23:42] VITALS: BP 79/53
[2025-02-27 04:16] VITALS: BP 82/58
[2025-02-27 04:45] LABS: Alanine Aminotransfer (ALT/SGP 27.0 U/L (12-78); Albumin, Blood 2.5 g/dL (3.4-5.0); Albumin/Globulin Ratio 0.8 (0.8-1.8); Anion Gap 6.0 mmol/L (3-11); Aspartate Aminotrans (AST/SGOT 14.0 U/L (12-37); Bilirubin, Total 0.4 mg/dL (0.1-1.0); Blood Urea Nitrogen 15.0 mg/dL (8-24); CO2, Blood 31.0 mmol/L (21-32); Calcium, Blood 8.5 mg/dL (8.5-10.1); Chloride, Blood 107.0 mmol/L (98-108); Creatinine, Blood 0.96 mg/dL (0.40-1.00); Globulin, Blood 3.0 g/dL (2.2-4.0); Glucose, Blood 102.0 mg/dL (70-99); Potassium, Blood 4.1 mmol/L (3.5-5.5); Sodium, Blood 140.0 mmol/L (136-145); Total Protein, Blood 5.5 g/dL (6.4-8.2)
--- NOTE | 2025-02-27 05:56 | NUR ---
SHIFT SUMMARY PT SLEPT LONG INTERVALS DURING THE NIGHT. 2LNC PLACED AT HS. BLOOD PRESSURE REMAINS SOFT, BUT MAP >60. OOB TO BATHROOM WITH 1 ASSIST AND FWW. DENIES DIZZINESS OR SOB. BED IN LOWEST POSITION, CALL LIGHT WITHIN REACH, SIDERAILS UP X2.
[2025-02-27 07:21] VITALS: BP 90/62
[2025-02-27 11:15] LABS: BASOPHILS ABSOLUTE AUTO 0.08 K/mm3 (0.00-0.23); BASOPHILS PERCENT AUTO 1 % (0-2); EOSINOPHILS ABSOLUTE AUTO 0.19 K/mm3 (0.00-0.68); EOSINOPHILS PERCENT AUTO 2 % (0-6); Hematocrit 36.3 % (33.0-51.0); Hemoglobin 11.7 g/dL (11.5-16.0); IMMATURE GRAN ABSOLUTE AUTO 0.11 K/mm3 (0.00-0.10); IMMATURE GRAN PERCENT AUTO 1 % (0-1); LYMPHOCYTES ABSOLUTE AUTO 1.39 K/mm3 (0.84-5.20); LYMPHOCYTES PERCENT AUTO 15 % (21-46); MONOCYTES ABSOLUTE AUTO 0.60 K/mm3 (0.16-1.47); MONOCYTES PERCENT AUTO 6 % (4-13); Mean Corpuscular HGB Conc 32.2 g/dL (31.5-36.5); Mean Corpuscular Volume 91 fL (80-100); NEUTROPHILS ABSOLUTE AUTO 6.94 K/mm3 (1.96-9.15); NEUTROPHILS PERCENT AUTO 75 % (41-73); NRBC ABSOLUTE 0.00 K/mm3 (0.00-0.02); NRBC Auto 0.0 /100 WBC (0.0-0.2); Platelet Count 352 K/mm3 (150-400); RDW Coefficient Variation 14.1 % (11.7-14.2); RDW Standard Deviation 47.5 fL (35.1-46.3)
[2025-02-27 11:20] VITALS: BP 105/65
[2025-02-27 14:56] VITALS: BP 105/68
[2025-02-27] MEDS ORDERED: Magnesium Hydroxide Conc 10 ML UDC PO PRN (15:05)
--- NOTE | 2025-02-27 17:26 | NUR ---
SHIFT SUMMARY: A&OX4 THIS SHIFT. SBA WITH FWW IN ROOM TO THE BATHROOM AND CHAIR. PT STS SHE HAS NOT HAD A BM IN "A FEW DAYS". SPOKE WITH DR. MARTINO AND STOOL SOFTENERS HAVE BEEN ORDERED TO BEGIN THIS EVENINIG. PT IS PLEASANT AND COOPERATIVE WITH CARE PROVIDED BY STAFF. NO ACUTE EVENTS THIS SHIFT REPORTED FROM TELEMETRY. IV IS PATENT. SPEECH THERAPY EVALUATED PT TODAY AND STATED PATIENTS SWALLOWING IS INTACT. BED REMAINS IN THE LOWEST POSITION WITH THE CALL LT WITHIN REACH. ACUTE NEEDS MET.
[2025-02-27 19:46] VITALS: BP 83/60
[2025-02-28] VITALS (7 sets, daily range): BP systolic 76–103; BP diastolic 50–65
--- NOTE | 2025-02-28 04:39 | NUR ---
SHIFT SUMMARY: PT AOX4 SBA, ON 2L OF O2 FOR COMFORT WHILE SLEEPING, SATTING 95. PT CALLS APPROPRIATELY AT TIMES, ALTHOUGH TRIED TO GET OUT OF BED TO USE THE RESTROOM SINCE SHE "DIDNT WANT TO BE A BOTHER". WALKS GREAT, JUST NEEDS SOMEONE TO MANAGE LINES. PT TOLERATING MEDICATIONS WELL. COOPERATIVE IN CARE. VERY PLEASANT. NO ACUTE OVERNIGHT EVENTS. PT IN BED RESTING, BED IN LOWEST POSITION, CALL LIGHT IN REACH. CONTINUING CARE.
[2025-02-28 06:07] LABS: Alanine Aminotransfer (ALT/SGP 26.0 U/L (12-78); Albumin, Blood 2.6 g/dL (3.4-5.0); Albumin/Globulin Ratio 0.9 (0.8-1.8); Anion Gap 7.0 mmol/L (3-11); Aspartate Aminotrans (AST/SGOT 14.0 U/L (12-37); Bilirubin, Total 0.5 mg/dL (0.1-1.0); Blood Urea Nitrogen 13.0 mg/dL (8-24); CO2, Blood 29.0 mmol/L (21-32); Calcium, Blood 8.6 mg/dL (8.5-10.1); Chloride, Blood 109.0 mmol/L (98-108); Creatinine, Blood 0.98 mg/dL (0.40-1.00); Globulin, Blood 3.0 g/dL (2.2-4.0); Glucose, Blood 97.0 mg/dL (70-99); Potassium, Blood 3.8 mmol/L (3.5-5.5); Sodium, Blood 141.0 mmol/L (136-145); Total Protein, Blood 5.6 g/dL (6.4-8.2)
[2025-02-28 06:57] LABS: BASOPHILS ABSOLUTE AUTO 0.10 K/mm3 (0.00-0.23); BASOPHILS PERCENT AUTO 1 % (0-2); EOSINOPHILS ABSOLUTE AUTO 0.23 K/mm3 (0.00-0.68); EOSINOPHILS PERCENT AUTO 3 % (0-6); Hematocrit 36.0 % (33.0-51.0); Hemoglobin 11.6 g/dL (11.5-16.0); IMMATURE GRAN ABSOLUTE AUTO 0.06 K/mm3 (0.00-0.10); IMMATURE GRAN PERCENT AUTO 1 % (0-1); LYMPHOCYTES ABSOLUTE AUTO 1.64 K/mm3 (0.84-5.20); LYMPHOCYTES PERCENT AUTO 18 % (21-46); MONOCYTES ABSOLUTE AUTO 0.66 K/mm3 (0.16-1.47); MONOCYTES PERCENT AUTO 7 % (4-13); Mean Corpuscular HGB Conc 32.2 g/dL (31.5-36.5); Mean Corpuscular Volume 91 fL (80-100); NEUTROPHILS ABSOLUTE AUTO 6.60 K/mm3 (1.96-9.15); NEUTROPHILS PERCENT AUTO 71 % (41-73); NRBC ABSOLUTE 0.00 K/mm3 (0.00-0.02); NRBC Auto 0.0 /100 WBC (0.0-0.2); Platelet Count 320 K/mm3 (150-400); RDW Coefficient Variation 14.1 % (11.7-14.2); RDW Standard Deviation 46.4 fL (35.1-46.3)
--- NOTE | 2025-02-28 17:43 | NUR ---
SHIFT SUMMARY PT AOX3-4, CALLS TO MAKE HER NEEDS KNOWN. SBA WITH FWW TO THE BR. PT HAD A BM THIS SHIFT. NO ACUTE COMPLAINTS OTHER THAN NO BM BUT THAT WAS ACCOMPLISHED THIS SHIFT. UP TO THE CHAIR FOR MEALS. REPOSITIONS SELF IN BED. DAUGHTER UPDATED VIA TELEPHONE. SHE IS ON RA, SATING >90%. WAITING ON PLACEMENT. CALL LIGHT WITHIN REACH, BED LOCKED AND IN THE LOWEST POSITION. WILL REPORT TO ONCOMING NURSE.
[2025-03-01 00:03] VITALS: BP 85/61
[2025-03-01 04:21] VITALS: BP 99/60
--- NOTE | 2025-03-01 04:40 | NUR ---
SHIFT SUMMARY: PT AOX4, CALLS APPROPRIATELY ABLE TO MAKE NEEDS KNOWN. PT AND FAMILY REQUESTED BIOX AND OXYGEN TO GIVE SOME PEACE OF MIND AND SOOTHE SOME ANXIETY. BPS CONTINUE TO BE SOFT, MIDODRINE GIVEN. PT SLEPT THROUGH MOST OF THE NIGHT WITHOUT ISSUES. PT HAD A LARGE BM. STATES TO FEEL MUCH BETTER. PT TOLERATING MEDICATIONS WELL. PT DENIES ANY DISCOMFORTS AT THIS TIME. NO ACUTE OVERNIGHT EVENTS. PT IN BED RESTING, BED IN LOWEST POSITION, CALL LIGHT IN REACH. CONTINUING CARE.
[2025-03-01 06:27] LABS: BASOPHILS ABSOLUTE AUTO 0.09 K/mm3 (0.00-0.23); BASOPHILS PERCENT AUTO 1 % (0-2); EOSINOPHILS ABSOLUTE AUTO 0.17 K/mm3 (0.00-0.68); EOSINOPHILS PERCENT AUTO 1 % (0-6); Hematocrit 33.3 % (33.0-51.0); Hemoglobin 10.8 g/dL (11.5-16.0); IMMATURE GRAN ABSOLUTE AUTO 0.09 K/mm3 (0.00-0.10); IMMATURE GRAN PERCENT AUTO 1 % (0-1); LYMPHOCYTES ABSOLUTE AUTO 1.14 K/mm3 (0.84-5.20); LYMPHOCYTES PERCENT AUTO 9 % (21-46); MONOCYTES ABSOLUTE AUTO 0.69 K/mm3 (0.16-1.47); MONOCYTES PERCENT AUTO 6 % (4-13); Mean Corpuscular HGB Conc 32.4 g/dL (31.5-36.5); Mean Corpuscular Volume 91 fL (80-100); NEUTROPHILS ABSOLUTE AUTO 10.07 K/mm3 (1.96-9.15); NEUTROPHILS PERCENT AUTO 82 % (41-73); NRBC ABSOLUTE 0.00 K/mm3 (0.00-0.02); NRBC Auto 0.0 /100 WBC (0.0-0.2); Platelet Count 300 K/mm3 (150-400); RDW Coefficient Variation 14.3 % (11.7-14.2); RDW Standard Deviation 47.4 fL (35.1-46.3)
[2025-03-01 06:55] LABS: Alanine Aminotransfer (ALT/SGP 25.0 U/L (12-78); Albumin, Blood 2.7 g/dL (3.4-5.0); Albumin/Globulin Ratio 0.9 (0.8-1.8); Anion Gap 5.0 mmol/L (3-11); Aspartate Aminotrans (AST/SGOT 15.0 U/L (12-37); Bilirubin, Total 0.4 mg/dL (0.1-1.0); Blood Urea Nitrogen 14.0 mg/dL (8-24); CO2, Blood 31.0 mmol/L (21-32); Calcium, Blood 8.5 mg/dL (8.5-10.1); Chloride, Blood 107.0 mmol/L (98-108); Creatinine, Blood 1.09 mg/dL (0.40-1.00); Globulin, Blood 2.9 g/dL (2.2-4.0); Glucose, Blood 97.0 mg/dL (70-99); Potassium, Blood 4.3 mmol/L (3.5-5.5); Sodium, Blood 139.0 mmol/L (136-145); Total Protein, Blood 5.6 g/dL (6.4-8.2)
[2025-03-01 07:43] VITALS: BP 88/58
--- NOTE | 2025-03-01 15:52 | NUR ---
NOTE: SPOKE WITH PT'S DAUGHTER, ISRRAEL, AND PROVIDED AN UPDATE.
[2025-03-01 16:35] VITALS: BP 83/58
--- NOTE | 2025-03-01 17:51 | NUR ---
SHIFT SUMMARY PT AOX3, SOFT SPOKEN. DOES NOT CALL ALL THE TIME BUT BA/CA ON. NO ACUTE COMPLAINTS. REPOSITIONS SELF IN BED. PLAN IS TO DC ON HOSPICE, PENDING INSURANCE AND PLACEMENT. FAMILY UDPATED. CALL LIGHT WITHIN REACH, BED LOCKED AND IN THE LOWEST POSITION. WILL REPORT TO ONCOMING NURSE.
[2025-03-01 19:38] VITALS: BP 78/48
[2025-03-01 20:15] VITALS: BP 76/54
[2025-03-02] VITALS (8 sets, daily range): BP systolic 84–103; BP diastolic 56–67
--- NOTE | 2025-03-02 06:02 | NUR ---
SHIFT SUMMARY PT SLEPT INTERMITTENTLY DURING THE NIGHT. PT WITH HAND MOTIONS AND SLIGHT LEG TREMORS WHILE RESTING WITH EYES CLOSED. 2L NC ON DURING SLEEP. CONTINUOUS PULSE OX IN PLACE. BLOOD PRESSURES CONTINUE TO RUN SOFT WITH MAP MOSTLY ABOVE 60. 1 ASSIST TO BATHROOM WITH FWW. BED IN LOWEST POSITION, CALL LIGHT WITHIN REACH, SIDERAILS UP X2.
[2025-03-02 06:09] LABS: BASOPHILS ABSOLUTE AUTO 0.06 K/mm3 (0.00-0.23); BASOPHILS PERCENT AUTO 1 % (0-2); EOSINOPHILS ABSOLUTE AUTO 0.13 K/mm3 (0.00-0.68); EOSINOPHILS PERCENT AUTO 2 % (0-6); Hematocrit 33.0 % (33.0-51.0); Hemoglobin 10.7 g/dL (11.5-16.0); IMMATURE GRAN ABSOLUTE AUTO 0.06 K/mm3 (0.00-0.10); IMMATURE GRAN PERCENT AUTO 1 % (0-1); LYMPHOCYTES ABSOLUTE AUTO 1.20 K/mm3 (0.84-5.20); LYMPHOCYTES PERCENT AUTO 16 % (21-46); MONOCYTES ABSOLUTE AUTO 0.49 K/mm3 (0.16-1.47); MONOCYTES PERCENT AUTO 7 % (4-13); Mean Corpuscular HGB Conc 32.4 g/dL (31.5-36.5); Mean Corpuscular Volume 91 fL (80-100); NEUTROPHILS ABSOLUTE AUTO 5.41 K/mm3 (1.96-9.15); NEUTROPHILS PERCENT AUTO 74 % (41-73); NRBC ABSOLUTE 0.00 K/mm3 (0.00-0.02); NRBC Auto 0.0 /100 WBC (0.0-0.2); Platelet Count 293 K/mm3 (150-400); RDW Coefficient Variation 14.6 % (11.7-14.2); RDW Standard Deviation 47.8 fL (35.1-46.3)
[2025-03-02 06:28] LABS: Alanine Aminotransfer (ALT/SGP 27.0 U/L (12-78); Albumin, Blood 2.6 g/dL (3.4-5.0); Albumin/Globulin Ratio 0.9 (0.8-1.8); Anion Gap 6.0 mmol/L (3-11); Aspartate Aminotrans (AST/SGOT 16.0 U/L (12-37); Bilirubin, Total 0.4 mg/dL (0.1-1.0); Blood Urea Nitrogen 11.0 mg/dL (8-24); CO2, Blood 31.0 mmol/L (21-32); Calcium, Blood 8.8 mg/dL (8.5-10.1); Chloride, Blood 107.0 mmol/L (98-108); Creatinine, Blood 1.08 mg/dL (0.40-1.00); Globulin, Blood 2.9 g/dL (2.2-4.0); Glucose, Blood 94.0 mg/dL (70-99); Potassium, Blood 4.1 mmol/L (3.5-5.5); Sodium, Blood 140.0 mmol/L (136-145); Total Protein, Blood 5.5 g/dL (6.4-8.2)
--- NOTE | 2025-03-02 18:40 | NUR ---
CHAIR ALARM SOUNDING; THIS RN TO BEDSIDE. DAUGHTER IN BATHROOM c PATIENT STATING THEY HAD BEEN WAITING "QUITE A LONG TIME" STATING HER LIGHT HAD "BEEN GOING OFF FOR ALMOST FIVE MINUTES". PATIENT NEEDED TO VOID ADN "WASN'T GOING TO WAIT". DAUGHTER REPORTS SHE CAME INTO ROOM AND FOUND PATIENT IN BATHROOM c WALKER, SEEMINGLY BEGINNING TO FALL BACKWARDS, WHEN SHE AIDED HER TO SITTING ON THE TOILET. THIS RN ASSISTED c [facility] AND ASSISTED PATIENT TO SIT UP IN CHAIR FOR DINNER. JALEEL AND TERRELL THEN TO BEDSIDE (REPORTED THEY WERE BOTH IN A ROOM DOING A COMPLETE BED CHANGE AND WERE UNAVAILABLE TO ASSIST c CALL LIGHT. BOTH CHARGES IN CHARGE REPORT. THIS RN APOLOGIZED TO PATIENT AND HER DAUGHTER. HOOKED BACK TO CONTINUOUS PULSE OX. SITTING IN CHAIR c CALL LIGHT WITHIN REACH AND DAUGHTER ASSISTING c DINNER.
--- NOTE | 2025-03-02 19:25 | NUR ---
SHIFT SUMMARY PT A&OX4. PT ADMITTED DUE TO ACUTE HYPOXIC RESP FAILURE. PT REPORTS NO SOB OR CHEST PAIN. PT REPORTED SOME SWEATYNESS. VSS. PT HAS HYPOTENSION. CONTINUED MONITORING. ORDERED SCHEDULES MIDODRINE. PT IS SBA WITH WALKER. PT HAS URINE URGENCY. CONT PULSE OX ON. PT SATS ARE 95%ON ROOM AIR. PT IN BED , BED IN LOWEST POSITON, CALL LIGHT IN REACH. PT UPRIGHT FOR MEALS.
[2025-03-03 02:34] VITALS: BP 97/81
--- NOTE | 2025-03-03 06:35 | NUR ---
Pt slept most the night waking only once to potty, denies pain , no s/s of hallucinations noted,
[2025-03-03 07:32] LABS: BASOPHILS ABSOLUTE AUTO 0.07 K/mm3 (0.00-0.23); BASOPHILS PERCENT AUTO 1 % (0-2); EOSINOPHILS ABSOLUTE AUTO 0.16 K/mm3 (0.00-0.68); EOSINOPHILS PERCENT AUTO 2 % (0-6); Hematocrit 37.7 % (33.0-51.0); Hemoglobin 12.0 g/dL (11.5-16.0); IMMATURE GRAN ABSOLUTE AUTO 0.04 K/mm3 (0.00-0.10); IMMATURE GRAN PERCENT AUTO 0 % (0-1); LYMPHOCYTES ABSOLUTE AUTO 1.73 K/mm3 (0.84-5.20); LYMPHOCYTES PERCENT AUTO 18 % (21-46); MONOCYTES ABSOLUTE AUTO 0.71 K/mm3 (0.16-1.47); MONOCYTES PERCENT AUTO 7 % (4-13); Mean Corpuscular HGB Conc 31.8 g/dL (31.5-36.5); Mean Corpuscular Volume 91 fL (80-100); NEUTROPHILS ABSOLUTE AUTO 7.10 K/mm3 (1.96-9.15); NEUTROPHILS PERCENT AUTO 73 % (41-73); NRBC ABSOLUTE 0.00 K/mm3 (0.00-0.02); NRBC Auto 0.0 /100 WBC (0.0-0.2); Platelet Count 338 K/mm3 (150-400); RDW Coefficient Variation 14.8 % (11.7-14.2); RDW Standard Deviation 47.8 fL (35.1-46.3)
[2025-03-03 07:51] LABS: Alanine Aminotransfer (ALT/SGP 33.0 U/L (12-78); Albumin, Blood 2.8 g/dL (3.4-5.0); Albumin/Globulin Ratio 0.8 (0.8-1.8); Anion Gap 7.0 mmol/L (3-11); Aspartate Aminotrans (AST/SGOT 21.0 U/L (12-37); Bilirubin, Total 0.4 mg/dL (0.1-1.0); Blood Urea Nitrogen 14.0 mg/dL (8-24); CO2, Blood 31.0 mmol/L (21-32); Calcium, Blood 8.7 mg/dL (8.5-10.1); Chloride, Blood 105.0 mmol/L (98-108); Creatinine, Blood 1.1 mg/dL (0.40-1.00); Globulin, Blood 3.3 g/dL (2.2-4.0); Glucose, Blood 109.0 mg/dL (70-99); Potassium, Blood 4.0 mmol/L (3.5-5.5); Sodium, Blood 139.0 mmol/L (136-145); Total Protein, Blood 6.1 g/dL (6.4-8.2)
[2025-03-03 08:57] VITALS: BP 115/68
[2025-03-03 14:02] VITALS: BP 98/77
--- NOTE | 2025-03-03 16:17 | NUR ---
NOTE: THIS RN RECEIVED A CALL AT 1500 FROM SAIDA Blackwell NP AT [facility]. PER SAIDA SHE HAS BEEN FOLLOWING c PATIENT FOR A YEAR. 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 THIS RN SPOKE TO PHARMACISTVONDA REGARDING THIS CONCERN. PER VONDA THEY HAVE AVAILABLE, BUT ONLY FOR BHU PATIENT BUT THEY MIGHT BE ABLE TO GIVE c AUTHORIZATION FOR INPATIENT, IF PATIENT STILL IN THE HOSPITAL NEXT WEEK.
[2025-03-03 17:31] VITALS: BP 113/78
--- NOTE | 2025-03-03 18:34 | NUR ---
SHIFT SUMMARY: PATIENT A/OX3, PLEASANT AND COOPERATIVE c CARE. PATIENT DENIES CP/PRESSURE, SOB, N/V AND DIZZINESS. PATIENT HAS VISIBLE TREMORS TO BUE'S/BLE'S. PATIENT ON RA, SATTING 90-97%, CONTINUES PULSE OX AT BEDSIDE. PATIENT SLEPT ON/OFF IN BED T/O THE DAY. PATIENT SAT UP IN CHAIR FOR BREAKFAST, LUNCH AND DINNER, FAIR APPETITE, CONTINENT OF BLADDER, AMBULATES TO BATHROOM c 1 ASSIST/FWW. PATIENT DAUGHTER CAME IN TODAY, UPDATED c MEDICAL CONDITION AND PLAN OF CARE, VERBALIZED UNDERSTANDING AND REQUESTING UPDATES FROM DOCTOR. DR. FRAIRE NOTIFIED AND SPOKE c DAUGHTER VIA PHONE. AT 1755 PATIENT DAUGHTER REPORTS CONCERNED, PER DAUGHTER "MY MOM IS MORE SLEEPY TODAY AND THERE IS SOMETHING GOING ON c HER. PATIENT VITALS SIGNS WNL AND CONTINUES TO DENIES ANY DISCOMFORT. PATIENT DAUGHTER REQUESTING TO SPEAK c DR. FRAIRE. NOTIFIED DR. FRAIRE AT 1805 c PATIENT DAUGHTER'S CONCERNED AND REQUEST. PER DR. FRAIRE SHE IS NOT ABLE TO MAKE IT IN ROOM, BUT SHE WILL TALK TO DAUGHTER TOMORROW AM. PATIENT IN BED c CALL LIGHT IN REACH.
[2025-03-03 19:14] VITALS: BP 93/60
[2025-03-04 03:33] VITALS: BP 115/76
[2025-03-04 07:02] VITALS: BP 104/69
[2025-03-04 09:05] LABS: BASOPHILS ABSOLUTE AUTO 0.07 K/mm3 (0.00-0.23); BASOPHILS PERCENT AUTO 1 % (0-2); EOSINOPHILS ABSOLUTE AUTO 0.12 K/mm3 (0.00-0.68); EOSINOPHILS PERCENT AUTO 2 % (0-6); Hematocrit 35.5 % (33.0-51.0); Hemoglobin 11.3 g/dL (11.5-16.0); IMMATURE GRAN ABSOLUTE AUTO 0.02 K/mm3 (0.00-0.10); IMMATURE GRAN PERCENT AUTO 0 % (0-1); LYMPHOCYTES ABSOLUTE AUTO 1.16 K/mm3 (0.84-5.20); LYMPHOCYTES PERCENT AUTO 17 % (21-46); MONOCYTES ABSOLUTE AUTO 0.38 K/mm3 (0.16-1.47); MONOCYTES PERCENT AUTO 5 % (4-13); Mean Corpuscular HGB Conc 31.8 g/dL (31.5-36.5); Mean Corpuscular Volume 92 fL (80-100); NEUTROPHILS ABSOLUTE AUTO 5.25 K/mm3 (1.96-9.15); NEUTROPHILS PERCENT AUTO 75 % (41-73); NRBC ABSOLUTE 0.00 K/mm3 (0.00-0.02); NRBC Auto 0.0 /100 WBC (0.0-0.2); Platelet Count 286 K/mm3 (150-400); RDW Coefficient Variation 14.8 % (11.7-14.2); RDW Standard Deviation 48.9 fL (35.1-46.3)
[2025-03-04 09:38] LABS: Alanine Aminotransfer (ALT/SGP 30.0 U/L (12-78); Albumin, Blood 2.6 g/dL (3.4-5.0); Albumin/Globulin Ratio 0.9 (0.8-1.8); Anion Gap 9.0 mmol/L (3-11); Aspartate Aminotrans (AST/SGOT 18.0 U/L (12-37); Bilirubin, Total 0.6 mg/dL (0.1-1.0); Blood Urea Nitrogen 15.0 mg/dL (8-24); CO2, Blood 29.0 mmol/L (21-32); Calcium, Blood 8.6 mg/dL (8.5-10.1); Chloride, Blood 105.0 mmol/L (98-108); Creatinine, Blood 1.07 mg/dL (0.40-1.00); Globulin, Blood 3.0 g/dL (2.2-4.0); Glucose, Blood 154.0 mg/dL (70-99); Potassium, Blood 3.9 mmol/L (3.5-5.5); Sodium, Blood 139.0 mmol/L (136-145); Total Protein, Blood 5.6 g/dL (6.4-8.2)
[2025-03-04] MEDS ORDERED: Peg 400/Hypromellose/Glycerin 15 DROP/ML BTL BOTHEYES PRN (10:25)
[2025-03-04] MEDS ORDERED: Dextran/Hypromellose/Glycerin 15 DROP/ML BTL BOTHEYES PRN (10:35)
[2025-03-04 16:21] VITALS: BP 92/61
[2025-03-04] MEDS ORDERED: HYDROcodone 5-APAP 325 TAB PO SCH ×2 (18:00→21:00)
--- NOTE | 2025-03-04 18:34 | NUR ---
PATIENT LESS RESTLESS, LESS GRIMACING THIS AFTERNOON, STARTED XANAX, PATIENT AWAKE AND ALERT X2, DAUGHTER AT BEDSIDE, PATIENT SHOWERED, ABD US DONE AGAIN TODAY, DR GOMEZ ROUNDED ON PATIENT AND SPOKE WITH DAUGHTER FACE TO FACE, OOB TO CHAIR AND BR SEVERAL TIMES TODAY, FWW QITH GAIT BELT, BED ALARM ON, CALL LIGHT WITH IN REACH, WILL RELAY TO PM RN
[2025-03-04 19:02] VITALS: BP 88/62
[2025-03-04 21:29] LABS: Source, Urine Clean Catch
[2025-03-04 21:32] LABS: Bilirubin, Urine Neg (Neg); Glucose Qualitative, Urine 4+ (Neg); Ketones, Urine Neg (Neg); Leukocyte Esterase, Urine Neg (Neg); Protein, Urine 1+ (Neg); Specific Gravity, Urine 1.020 (1.003-1.022); Urobilinogen, Urine NORM (Normal)
[2025-03-04 21:37] LABS: Color, Urine Yellow (P-Yellow)
[2025-03-05 04:32] VITALS: BP 84/59
--- NOTE | 2025-03-05 05:03 | NUR ---
NOC SUMMARY PT A&OX2-3, PLEASANT AND COOPERATIVE W/CARES, BP REMAIN SOFT (MIDODRINE ADMIN PER NOV), DAUGHTER AT BEDSIDE AT START OF SHIFT, REPORTS PT IS HAVING POOR PO FLUID INTAKE, XANAX STARTED PREV SHIFT AND ADMIN AT BEDTIME-PT SLEPT T/O THE NIGHT, MEDICATED 1X FOR PAIN (SCHED) 4/10 L ABD, PT SLEEPING AT THIS TIME, CALL LIGHT IN REACH, BED ALARM ACTIVE.
[2025-03-05 07:02] VITALS: BP 88/65
[2025-03-05 11:22] LABS: BASOPHILS ABSOLUTE AUTO 0.06 K/mm3 (0.00-0.23); BASOPHILS PERCENT AUTO 1 % (0-2); EOSINOPHILS ABSOLUTE AUTO 0.17 K/mm3 (0.00-0.68); EOSINOPHILS PERCENT AUTO 2 % (0-6); Hematocrit 35.0 % (33.0-51.0); Hemoglobin 11.3 g/dL (11.5-16.0); IMMATURE GRAN ABSOLUTE AUTO 0.03 K/mm3 (0.00-0.10); IMMATURE GRAN PERCENT AUTO 0 % (0-1); LYMPHOCYTES ABSOLUTE AUTO 1.06 K/mm3 (0.84-5.20); LYMPHOCYTES PERCENT AUTO 13 % (21-46); MONOCYTES ABSOLUTE AUTO 0.53 K/mm3 (0.16-1.47); MONOCYTES PERCENT AUTO 7 % (4-13); Mean Corpuscular HGB Conc 32.3 g/dL (31.5-36.5); Mean Corpuscular Volume 90 fL (80-100); NEUTROPHILS ABSOLUTE AUTO 6.09 K/mm3 (1.96-9.15); NEUTROPHILS PERCENT AUTO 77 % (41-73); NRBC ABSOLUTE 0.00 K/mm3 (0.00-0.02); NRBC Auto 0.0 /100 WBC (0.0-0.2); Platelet Count 315 K/mm3 (150-400); RDW Coefficient Variation 14.9 % (11.7-14.2); RDW Standard Deviation 48.0 fL (35.1-46.3)
[2025-03-05 11:39] LABS: Alanine Aminotransfer (ALT/SGP 27.0 U/L (12-78); Albumin, Blood 2.7 g/dL (3.4-5.0); Albumin/Globulin Ratio 1.0 (0.8-1.8); Anion Gap 5.0 mmol/L (3-11); Aspartate Aminotrans (AST/SGOT 15.0 U/L (12-37); Bilirubin, Total 0.4 mg/dL (0.1-1.0); Blood Urea Nitrogen 18.0 mg/dL (8-24); CO2, Blood 34.0 mmol/L (21-32); Calcium, Blood 8.8 mg/dL (8.5-10.1); Chloride, Blood 104.0 mmol/L (98-108); Creatinine, Blood 1.02 mg/dL (0.40-1.00); Globulin, Blood 2.7 g/dL (2.2-4.0); Glucose, Blood 129.0 mg/dL (70-99); Potassium, Blood 4.1 mmol/L (3.5-5.5); Sodium, Blood 139.0 mmol/L (136-145); Total Protein, Blood 5.4 g/dL (6.4-8.2)
[2025-03-05 15:48] VITALS: BP 93/69
[2025-03-05 16:23] VITALS: BP 107/78
--- NOTE | 2025-03-05 16:23 | NUR ---
NO ACUTE CHANGES, NO GRIMACING, MINIMAL RESTLESS MOVEMENTS THAT ARE LESS JERKY, PATIENT STATES "I DO FEEL BETTER TODAY", SMILING AND LAUGHING, CLEARLY MAKING NEEDS KNOWN, MEDICATED X1 WITH XANAX, COOPERATIVE TO CARE, CALL LIGHT WITH IN REACH, BED ALARM ON, WILL RELAY TO PM RN
[2025-03-05 19:23] VITALS: BP 108/77
[2025-03-06 03:48] VITALS: BP 90/61
[2025-03-06 07:06] VITALS: BP 87/60
--- NOTE | 2025-03-06 07:18 | NUR ---
PT ALERT AND ORIENTED X4. DAUGHTER AT THE BEDSIDE. PT SLEPT THROUGH THE NIGHT. MEDICATED FOR PAIN AND ANXIETY. DAUGHTER CALLED THIS MORNING AND WAS UPDATED. CALL [place]ER[place]OD WITHIN REACH.
--- NOTE | 2025-03-06 07:24 | NUR ---
ASSUMPTION OF CARE: THIS RN ASSUMED CARE OF PATIENT. ASLEEP DURING SHIFT CHANGE REPORT. LYING IN BED c HOB ELEVATED. BREATHING EVEN AND UNLABORED c 2LPM/NC. NIGHT NURSE REPORTS DAUGHTER HAS CALLED FOR REPORT FROM [facility]. BED IN LOWEST POSITION. CALL LIGHT WITHIN REACH. ACUTE NEEDS MET.
[2025-03-06 08:49] LABS: BASOPHILS ABSOLUTE AUTO 0.10 K/mm3 (0.00-0.23); BASOPHILS PERCENT AUTO 1 % (0-2); EOSINOPHILS ABSOLUTE AUTO 0.26 K/mm3 (0.00-0.68); EOSINOPHILS PERCENT AUTO 3 % (0-6); Hematocrit 40.1 % (33.0-51.0); Hemoglobin 12.7 g/dL (11.5-16.0); IMMATURE GRAN ABSOLUTE AUTO 0.05 K/mm3 (0.00-0.10); IMMATURE GRAN PERCENT AUTO 1 % (0-1); LYMPHOCYTES ABSOLUTE AUTO 1.87 K/mm3 (0.84-5.20); LYMPHOCYTES PERCENT AUTO 19 % (21-46); MONOCYTES ABSOLUTE AUTO 0.62 K/mm3 (0.16-1.47); MONOCYTES PERCENT AUTO 6 % (4-13); Mean Corpuscular HGB Conc 31.7 g/dL (31.5-36.5); Mean Corpuscular Volume 91 fL (80-100); NEUTROPHILS ABSOLUTE AUTO 6.80 K/mm3 (1.96-9.15); NEUTROPHILS PERCENT AUTO 70 % (41-73); NRBC ABSOLUTE 0.00 K/mm3 (0.00-0.02); NRBC Auto 0.0 /100 WBC (0.0-0.2); Platelet Count 304 K/mm3 (150-400); RDW Coefficient Variation 15.0 % (11.7-14.2); RDW Standard Deviation 49.4 fL (35.1-46.3)
[2025-03-06 09:22] LABS: Alanine Aminotransfer (ALT/SGP 28.0 U/L (12-78); Albumin, Blood 3.1 g/dL (3.4-5.0); Albumin/Globulin Ratio 1.0 (0.8-1.8); Anion Gap 5.0 mmol/L (3-11); Aspartate Aminotrans (AST/SGOT 16.0 U/L (12-37); Bilirubin, Total 0.5 mg/dL (0.1-1.0); Blood Urea Nitrogen 19.0 mg/dL (8-24); CO2, Blood 33.0 mmol/L (21-32); Calcium, Blood 9.5 mg/dL (8.5-10.1); Chloride, Blood 103.0 mmol/L (98-108); Creatinine, Blood 1.0 mg/dL (0.40-1.00); Globulin, Blood 3.1 g/dL (2.2-4.0); Glucose, Blood 112.0 mg/dL (70-99); Potassium, Blood 4.3 mmol/L (3.5-5.5); Sodium, Blood 137.0 mmol/L (136-145); Total Protein, Blood 6.2 g/dL (6.4-8.2)
[2025-03-06 13:25] VITALS: BP 92/60
[2025-03-06 15:47] VITALS: BP 101/62
--- NOTE | 2025-03-06 19:40 | NUR ---
END OF SHIFT SUMMARY: A&Ox4. PLEASANT AND COOPERATIVE WITH CARE. CALLS APPROPRIATELY AND IS ABLE TO ADVOCATE NEEDS EFFECTIVELY BUT WILL CALL AND IMMEDIATELY BEGIN GETTING OUT OF BED TO AMBULATE TO BATHROOM. AMBULATES 1PA c FWW AND CAN BE ATAXIC AND UNSTEADY OF FEET. MEDS WHOLE c FLUIDS. MAINTAININ SPO2 >92% c RA WHILE AWAKE AND 2LPM/NC @ HS. DAUGHTER AT BEDSIDE CONCERNED THAT PT STILL HAVING ITCHING AND DRAINAGE IN EYES AND REQUESTING PROVIDER LOOK AT EYES. DAUGHTER WOULD ALSO LIKE TO SPEAK c PROVIDER, DAILY. LET HER KNOW PROVIDER WILL TRY BUT IS NOT ALWAYS ABLE TO ACCOMMODATE THIS. BED IN LOWEST POSITION, CALL LIGHT WITHIN REACH, ALL NEEDS MET. REPORT TO ONCOMING NURSE.
[2025-03-06 20:41] VITALS: BP 89/56
[2025-03-07 02:42] VITALS: BP 92/62
--- NOTE | 2025-03-07 07:38 | NUR ---
ASSUMPTION OF CARE: THIS RN ASSUMED CARE OF PATIENT FOR 2ND DAY. ASLEEP DURING SHIFT CHANGE REPORT. LYING IN BED ON BACK c HOB ELEVATED. BREATHING EVEN AND UNLABORED c ROOM AIR; MAINTAINING SPO2 >92% PER CONTINUOUS PULSE OX. BED IN LOWEST POSITION. CALL LIGHT WITHIN REACH. ACUTE NEEDS MET.
[2025-03-07 07:46] VITALS: BP 95/59
--- NOTE | 2025-03-07 15:39 | NUR ---
LEFT MESSAGE FOR PT'S DTR/GUARDIAN, CONNIE THIS AFTERNOON TO REVIEW CARE PLAN. THIS PC RN WILL ATTEMPT TO REACH CONNIE AGAIN TOMORROW MORNING 03/08/25.
[2025-03-07 21:25] VITALS: BP 109/70
--- NOTE | 2025-03-07 21:27 | NUR ---
END OF SHIFT SUMMARY: A&Ox4. PLEASANT AND COOPERATIVE WITH CARE. CALLS APPROPRIATELY AND IS ABLE TO ADVOCATE NEEDS EFFECTIVELY. CONTINENT OF BOWEL AND BLADDER. AMBULATES c 1PA & FWW. IMPULSIVE. MEDS WHOLE c FLUIDS. NO C/O PAIN OR DISCOMFORT TODAY. DENIES C/O EYE PAIN. SOFT BPs c ROUTINE MIDODRINE. BED IN LOWEST POSITION, CALL LIGHT WITHIN REACH, ALL NEEDS MET. REPORT TO ONCOMING NURSE.
[2025-03-08 04:41] VITALS: BP 105/70
--- NOTE | 2025-03-08 05:04 | NUR ---
EXPLOSIVE TECHNICIAN SUMMARY VSS. DX ACUTE HYPOXIC RESP FAILURE. ON O2 AT 2L/MIN PER NC AND CONT PULSE OX TO MONITOR. O2 SATS REMAIN IN THE 90'S. UP WITH ONE PERSON ASSIST TO BATHROOM. DAUGHTER WAS AT BEDSIDE UNTIL HS. PT HAS BEEN RESTING QUIETLY WITH FEW INTERRUPTIONS. LUNG SOUNDS SLIGHTLY DIMINISHED PER AUSCULTATION. HOB ELEVATED FOR RESP COMFORT. CALL LIGHT IN REACH, RAILS UP X 2 AND BED IN LOW POSITON FOR SAFETY. WILL CONT TO MONITOR
[2025-03-08 07:30] VITALS: BP 92/68
--- NOTE | 2025-03-08 14:58 | NUR ---
SPOKE WITH GUARDIAN/DTR CONNIE VIA PHONE. CONNIE DECLINES TRANSITIONING PT TO COMFORT CARE WHILE PT IS IN THE HOSPITAL. APD IN PERSON ASSESSMENT March. [facility]. DTR REPORTS [facility] WOULD ACCEPT PT PENDING INSURANCE APPROVAL. "WHAT WOULD HAPPEN IF WE PLACE MOM PRIOR TO INSURANCE APPROVAL?" QUESTIONS AND CONCERNS FORWARDED TO CARE MANAGEMENT. ASKED DR. TAMEZ TO CALL GUARDIAN/DTR PER HER REQUEST. PC TO REMAIN AVAILABLE NEEDED.
[2025-03-08 15:26] VITALS: BP 99/69
[2025-03-08] MEDS ORDERED: BENZ1 (16:39)
--- NOTE | 2025-03-08 16:46 | NUR ---
NO ACUTE CHANGES THIS SHIFT. PT HAS BEEN TREMULOUS. PT STATES MUCH WORSE THAN USUAL. SPOKE WITH DAUGHTER ISRRAEL. PER DAUGHTER, PT IS SUPPOSED TO BE TAKING BENZTROPINE WITH HALDOL TO REDUCE TREMORS. THIS RN NOTED THAT PT HAS NOT BEEN TAKING THIS MEDICATION. DAUGHTER WILL BRING IN MEDICAITON LIST TODAY TO CONFIRM DOSE. PT IS IMPULSIVE CALM AND COOPERATIVE WITH CARE. PT DOES CALL SOMETIMES BUT WILL JUMP OUT OF CHAIR IS NOT ANSWERED IMMEDIATELY. EDUCATION PROVIDED ON FALL RISK SAFETY.
[2025-03-08 19:18] VITALS: BP 93/67
[2025-03-09 03:30] VITALS: BP 86/65
--- NOTE | 2025-03-09 05:21 | NUR ---
SHIFT SUMMARY PT ALERT ORIENTED ABLE TO VERBALIZE NEEDS REQUIRES 1 PERSON SBA TO AMBULATE TO BATHROOM. NO C/O PAIN REMAINS ON NORCO ORDERED FOR PAIN CONTROL. C/O ANXIETY MEDICATED WITH XANAX ORDERED. PT SLEPT WELL THROUGHOUT THE NIGHT. SHES AWAITING INSURANCE APPROVAL TO GO TO A SNF. CONTINUES ON A CONTINUOUS PULSE OX. SHE REMAINS WITH A SOFT BP AND CONTINUES ON MIDODRINE ORDERED. POWERGLIDE INTACT TO NEREIDA SL. REMAINS ON RA DURING THE DAY AND 2L VIA NC AT NIGHT. BED ALARM ON AT ALL TIMES. SHES RESTING IN BED AT THIS TIME WITH CALL LIGHT IN REACH
[2025-03-09 07:57] VITALS: BP 87/56
[2025-03-09 15:39] VITALS: BP 95/70
--- NOTE | 2025-03-09 16:59 | NUR ---
PT HAS HAD NO ACUTE CHANGES. PT HAS BEEN UP A ONE PERSON STANDBY TO RESTROOM MULTIPLE TIMES. PT REPORTS FEELING CONSTIPATED AND WAS TREATED PER EMAR. PT RESTING IN BED CALL LIGHT IN REACH WILL CONTINUE TO MONITOR.
[2025-03-09 20:53] VITALS: BP 92/60
--- NOTE | 2025-03-10 05:27 | NUR ---
SHIFT SUMMARY PT ALERT ORIENTED ABLE TO VERBALIZE NEEDS REQUIRES 1 PERSON SBA WITH WALKER TO AMBULATE TO THE BATHROOM. REMAINS ON ROUTINE NORCO FOR PAIN CONTROL. SHE REMAINS HYPOTENSIVE AND CONTINUES ON MIDODRINE SHE FINALLY HAD A LG BM LAST NIGHT. SHE GETS UP TO CHAIR FOR ALL MEALS AND REQUIRES TO HAVE HER MEALS CUT UP IN BITE SIZE. CONTINUES ON A CONTINUOUS PULSE OX SATTING AT 94% ON 2L VIA NC AT NIGHT ONLY. REMAINS WITH A POWER GLIDE TO HER NEREIDA. SHE HAS 2+ EDEMA TO HER BLE. SHE WAS GIVEN XANAX TO HELP HER WITH HER ANXIETY AND TO HELP HER SLEEP. SHES WAITING ON INSURANCE APPROVAL TO BE ABLE TO GO TO A SNF. SHES RESTING IN BED AT THIS TIME WITH BED ALARM ON AND CALL LIGHT IN REACH
[2025-03-10 06:27] VITALS: BP 88/59
[2025-03-10 07:52] VITALS: BP 96/59
[2025-03-10 11:39] VITALS: BP 99/74
[2025-03-10] MEDS ORDERED: INVEGA SUS39 MG/0.21 IM (11:57)
[2025-03-10] MEDS ORDERED: Haldol Dec50 MG/1 ML IM (11:59)
[2025-03-10 15:02] VITALS: BP 94/73
[2025-03-10] MEDS ORDERED: Haloperidol Decanoate 50 MG / ML 1ML Amp IM ONE (15:55)
[2025-03-10] MEDS ORDERED: HALOPERIDOL DECANOATE 100 MG/ML IM SCH (18:00)
[2025-03-10] MEDS ORDERED: PALIPERIDONE PALMITATE 156 MG/ML IM SCH (18:00)
[2025-03-10 19:30] VITALS: BP 99/63
[2025-03-11 04:20] VITALS: BP 104/72
--- NOTE | 2025-03-11 04:45 | NUR ---
SHIFT SUMMARY PT ADMITTED ON 02/16/25 FOR ACUTE HYPOXEMIC RESP FAILURE AND CHF EXACERBATION. A&OX3 WITH SOME CONFUSION. DENIES PAIN OR SOB. WEARING O2 AT 2 LPM CONTINOUS AT BEDTIME. SBA TO RESTROOM. PT AWAITING INSURANCE AUTH TO TRANSFER TO [facility]. RESTING COMFORTABLY IN BED AT LOWEST POSITION WITH RAILS X2 AND CALL LIGHT WITHIN REACH.
[2025-03-11 07:01] VITALS: BP 103/74
[2025-03-11 16:14] VITALS: BP 101/69
[2025-03-11 19:39] VITALS: BP 103/71
[2025-03-12 07:28] VITALS: BP 109/77
[2025-03-12 15:19] VITALS: BP 107/73
--- NOTE | 2025-03-12 18:28 | NUR ---
PT UP IN CHAIR FOR MEALS. DENIES PAIN ALL DAY. VISITED WITH FAMILY. ALERT X4. C/O CONSTIPATION GAVE PRUNEJUICE.
[2025-03-12 20:13] VITALS: BP 106/74
--- NOTE | 2025-03-13 05:28 | NUR ---
SHIFT SUMMARY 64 YR F ADMITTED ON 02/16/25. DNR. NO ACUTE CHANGES THIS SHIFT. PT IS PLEASANT AND COOPERATIVE WITH CARE. SHE APPEARS TO HAVE RESTED COMFORTABLY THROUGHOUT THE NIGHT. NO C/O PAIN OR DISCOMFORT. BED IN LOW POSITION AND CALL LIGHT IN REACH.
[2025-03-13 05:39] VITALS: BP 107/78
[2025-03-13 07:17] VITALS: BP 114/75
--- NOTE | 2025-03-13 11:00 | NUR ---
SUPPORTIVE VISIT: LAURA IS A/O X3 THIS MORNING. NO ACUTE S/SX OF DISTRESS. REVIEWED CASE WITH . PROVIDER TO CALL DTR/GUARDIAN CONNIE TO CHECK IN. PC TO REMAIN AVAILABLE NEEDED.
[2025-03-13 14:19] VITALS: BP 91/66
[2025-03-13 17:20] VITALS: BP 91/63
--- NOTE | 2025-03-13 18:19 | NUR ---
SHIFT SUMMARY: PATIENT REMAINS PLEASANT AND QUIET MOST OF THIS DAY. BLOOD PRESSURE NOTED TO BE HYPOTENSIVE FOR THE MAJORITY OF TODAY. PATIENT HAS REMAINED ON RA DURING THIS SHIFT c NO DIFFICULTY OBSERVED. A+O X3 AND COOPERATIVE c NURSING CARE. AWAITING ASSISTED PLACEMENT. PLAN OF CARE ONGOING AT THIS TIME, WILL GIVE REPORT TO ONCOMING RN.
[2025-03-13 18:30] VITALS: BP 96/66
[2025-03-13 19:14] VITALS: BP 87/60
--- NOTE | 2025-03-14 03:06 | NUR ---
SHIFT SUMMARY 64 YR F ADMITTED ON 02/16/25. DNR. NO ACUTE CHANGES THIS SHIFT. PT HAS BEEN CALM, QUIET, AND PLEASANT THIS SHIFT. 2 L O2 FOR COMFORT WHILE SLEEPING. PT C/O BACK PAIN AND GIVEN SCHEDULED PAIN MED AT BEDTIME. SHE APPEARS TO HAVE SLEPT COMFORTABLY THROUGH THE NIGHT. CALLS APPROPRIATELY FOR ASSISTANCE. BED IN LOW POSITION AND CALL LIGHT IN REACH.
[2025-03-14 05:23] LABS: BASOPHILS ABSOLUTE AUTO 0.07 K/mm3 (0.00-0.23); BASOPHILS PERCENT AUTO 1 % (0-2); EOSINOPHILS ABSOLUTE AUTO 0.32 K/mm3 (0.00-0.68); EOSINOPHILS PERCENT AUTO 5 % (0-6); Hematocrit 37.8 % (33.0-51.0); Hemoglobin 12.1 g/dL (11.5-16.0); IMMATURE GRAN ABSOLUTE AUTO 0.03 K/mm3 (0.00-0.10); IMMATURE GRAN PERCENT AUTO 0 % (0-1); LYMPHOCYTES ABSOLUTE AUTO 2.07 K/mm3 (0.84-5.20); LYMPHOCYTES PERCENT AUTO 30 % (21-46); MONOCYTES ABSOLUTE AUTO 0.67 K/mm3 (0.16-1.47); MONOCYTES PERCENT AUTO 10 % (4-13); Mean Corpuscular HGB Conc 32.0 g/dL (31.5-36.5); Mean Corpuscular Volume 91 fL (80-100); NEUTROPHILS ABSOLUTE AUTO 3.66 K/mm3 (1.96-9.15); NEUTROPHILS PERCENT AUTO 54 % (41-73); NRBC ABSOLUTE 0.00 K/mm3 (0.00-0.02); NRBC Auto 0.0 /100 WBC (0.0-0.2); Platelet Count 248 K/mm3 (150-400); RDW Coefficient Variation 15.7 % (11.7-14.2); RDW Standard Deviation 50.8 fL (35.1-46.3)
[2025-03-14 05:45] VITALS: BP 90/62
[2025-03-14 05:48] LABS: Alanine Aminotransfer (ALT/SGP 23.0 U/L (12-78); Albumin, Blood 3.1 g/dL (3.4-5.0); Albumin/Globulin Ratio 1.1 (0.8-1.8); Anion Gap 6.0 mmol/L (3-11); Aspartate Aminotrans (AST/SGOT 13.0 U/L (12-37); Bilirubin, Total 0.8 mg/dL (0.1-1.0); Blood Urea Nitrogen 13.0 mg/dL (8-24); CO2, Blood 28.0 mmol/L (21-32); Calcium, Blood 9.0 mg/dL (8.5-10.1); Chloride, Blood 109.0 mmol/L (98-108); Creatinine, Blood 0.97 mg/dL (0.40-1.00); Globulin, Blood 2.8 g/dL (2.2-4.0); Glucose, Blood 104.0 mg/dL (70-99); Potassium, Blood 4.2 mmol/L (3.5-5.5); Sodium, Blood 139.0 mmol/L (136-145); Total Protein, Blood 5.9 g/dL (6.4-8.2)
[2025-03-14 06:00] VITALS: BP 90/62
[2025-03-14 07:10] VITALS: BP 98/70
[2025-03-14] MEDS ORDERED: Magnesium Citrate 300 ML BTL PO ONE (15:05)
--- NOTE | 2025-03-14 15:56 | NUR ---
END OF SHIFT SUMMARY: A&Ox4. PLEASANT AND COOPERATIVE WITH CARE. CALLS APPROPRIATELY AND IS ABLE TO ADVOCATE NEEDS EFFECTIVELY. CONTINENT OF BOWEL AND BLADDER; LAST BOWEL MOVEMENT 3 DAYS AGO. GIVEN MAG CITRATE ORDERED. AMBULATES WITH 1 PER AST. PT REPORTS HALLUCINATIONS AND DELUSIONS. PT STATES SHE IS TALKING TO PEOPLE FROM [place]. NO NEW CHANGES THIS SHIFT. WAITING ON PLACEMENT TO NURSING HOME. BED IN LOWEST POSITION, CALL LIGHT WITHIN REACH, ALL NEEDS MET. REPORT TO ONCOMING NURSE.
--- NOTE | 2025-03-14 16:12 | NUR ---
LAURA IS PLEASANT, ALERT AND TALKATIVE TODAY. NO S/SX OF DISTRESS NOTED. NO ACUTE NEEDS AT THIS TIME. PC TO REMAIN AVAILABLE NEEDED.
[2025-03-14 16:27] VITALS: BP 90/69
[2025-03-14 20:34] VITALS: BP 92/67
--- NOTE | 2025-03-15 04:19 | NUR ---
SHIFT SUMMARY 64 YR F ADMITTED ON 02/16/25. DNR. NO ACUTE CHANGES THIS SHIFT. PT AMBULATED WITH ASSISTANCE AROUND THE UNIT THIS SHIFT. SHE APPEARED TO HAVE ENJOYED THE WALK AND SHE WAS STEADY ON HER FEET. PLAN IS FOR APD INTERVIEW IN THE A.M. AND DAUGHTER STATES SHE WILL BE HERE TO ATTEND. PT APPEARS TO NOW BE RESTING COMFORTABLY. BED IN LOW POSITION WITH ALARM ON AND CALL LIGHT IN REACH.
[2025-03-15 06:30] VITALS: BP 89/63
[2025-03-15 08:25] VITALS: BP 96/63
[2025-03-15] MEDS ORDERED: ALPR.25 PO (14:24)
[2025-03-15] MEDS ORDERED: Norco 5-325 Ta1 EACH PO (14:26)
--- NOTE | 2025-03-15 16:06 | NUR ---
DISCHARGE SUMMARY: A&Ox4. PLEASANT AND COOPERATIVE WITH CARE. CALLS APPROPRIATELY AND IS ABLE TO ADVOCATE NEEDS EFFECTIVELY. AMBULATES. CONTINENT OF BOWEL AND BLADDER; LBM 03/15/25. TAKES MEDS WHOLE WITH Water. PATIENT PROVIDED WITH COPY OF DISCHARGE PLAN AND MEDICATION LIST. MED REC FAXED TO PHARMACY. INSTRUCTED TO FOLLOW-UP WITH PCP IN 7 TO 10 DAYS . ALL QUESTIONS ANSWERED TO THIS NURSES ABILITY AND PATIENT VOICED UNDERSTANDING OF DISCHARGE PLAN. IV REMOVED AND PRESSURE DRESSING PLACED. LEFT FLOOR WITH ALL BELONGINGS AND DISCHARGE PACKET, ESCORTED BY THIS EXECUTIVE CYBER LEADER . TRANSPORTATION PROVIDED BY DAUGHTER.
== END 2025-03-15 14:55 | disposition hospice, home (50) | DRG 321 ==
LOC: ER 16:05 → MEDS 19:34 → PCU 19:34 → MEDS 02-20 18:17 → ENPENDDIS 03-15 14:14 → MEDS 03-15 14:55
PROVIDERS: Family Medicine; Hospitalist; Internal Medicine; Internal Medicine Cardiovascular Disease; Student in an Organized Health Care Education/Training Program; ADMIT Family Medicine
PROC: 5A09357 Assistance with Respiratory Ventilation, Less than 24 Consecutive Hours, Continuous Positive Airway Pressure (ICD-10-PCS; 2025-02-16)
PROC: 027034Z Dilation of Coronary Artery, One Artery with Drug-eluting Intraluminal Device, Percutaneous Approach (ICD-10-PCS; principal; 2025-02-18)
PROC: B2111ZZ Fluoroscopy of Multiple Coronary Arteries using Low Osmolar Contrast (ICD-10-PCS; 2025-02-18)
PROC: 4A033BC Measurement of Arterial Pressure, Coronary, Percutaneous Approach (ICD-10-PCS; 2025-02-18)
DX: I21.9 Acute myocardial infarction, unspecified (principal); I50.21 Acute systolic (congestive) heart failure; J96.01 Acute respiratory failure with hypoxia; F20.0 Paranoid schizophrenia; F03.92 Unspecified dementia, unspecified severity, with psychotic disturbance; I42.9 Cardiomyopathy, unspecified; I25.10 Atherosclerotic heart disease of native coronary artery without angina pectoris; R13.10 Dysphagia, unspecified; K76.1 Chronic passive congestion of liver; Z66 Do not resuscitate; D72.829 Elevated white blood cell count, unspecified; E61.1 Iron deficiency; K80.20 Calculus of gallbladder without cholecystitis without obstruction; H04.123 Dry eye syndrome of bilateral lacrimal glands; I95.9 Hypotension, unspecified; K59.00 Constipation, unspecified; Z87.891 Personal history of nicotine dependence; Z86.19 Personal history of other infectious and parasitic diseases
CPT/HCPCS: 0241U; 36415; 36416; 71045; 71046; 71260; 76705; 76937; 80048; 80053; 80061; 80074; 81003; 82533; 82728; 82803; 83540; 83550; 83735; 83880; 84100; 84443; 84484; 85025; 85347; 85379; 85520; 85610; 87522; 92610; 93005; 93010; 93306; 93454; 93571; 94660; 94760; 94762; 96374; 99152; 99153; 99285-25; A6590; A9270; C1725; C1751; C1769; C1874; C1887; C1894; C9600; J1644; J1650; J1938; J2250; J2371; J3010; J7030; J7050; Q9967